=== PATIENT | female | born 1955 | race Caucasian/White ===

== ENCOUNTER 2019-07-21 01:29 | Day surgery (SDC) | payer OTHER, SELFPAY ==
[2019-07-13 11:40] VITALS: BMI 27.3
[2019-07-21] VITALS (10 sets, daily range): BP systolic 125–154; BP diastolic 74–99; PULSE 55–77; RESP 12–20; TEMP 36.3–37.1; O2SAT 92–100
[2019-07-21] MEDS: LACTATED RINGERS 1,000 ML 30 ML IV CONT (10:25)
--- NOTE | 2019-07-21 10:58 | WPDANESEPPF ---
Anes - Initial Pre Proc Eval Procedure: Operation Date: 07/21/19 12:00 Proposed Procedures p Left Knee Arthroscopy, Partial Lateral Meniscectomy - Bernard Vieyra MD Date/Time: 07/21/19 10:58 Surgeon: Bernard Vieyra MD Pre Op Diagnosis: Left Knee Pain Patient Data Age: 64 Gender: F Height: 1.7 m Weight: 82.8 kg Last Vital Signs Temp 36.3 C L 07/21/19 09:59 Pulse 66 07/21/19 09:59 Resp 20 07/21/19 09:59 BP 144/80 H 07/21/19 09:59 Pulse Ox 98 07/21/19 09:59 Allergies Allergy/AdvReac Type Severity Reaction Status Date / Time morphine Allergy Unknown SYNCOPE Verified 07/21/19 10:09 Home Medications Medication Instructions Recorded Confirmed Type cholecalciferol (vitamin D3) 25 mcg PO DAILY 07/13/19 07/21/19 History [Vitamin D3] cyanocobalamin (vitamin B-12) 5,000 mcg SUBLINGUAL DAILY 07/13/19 07/21/19 History [Vitamin B-12] levothyroxine [Synthroid] 125 mcg PO DAILY 07/13/19 07/21/19 History pantoprazole 20 mg PO DAILY 07/13/19 07/21/19 History ropinirole 1 mg PO QPM 07/13/19 07/21/19 History rosuvastatin 10 mg PO DAILY 07/13/19 07/21/19 History Patient hx anesthesia problems: none Family hx anesthesia problems: none [facility] Past Medical History Medical History (Updated 07/20/19 @ 10:23 by Sd Grant DO) GERD (gastroesophageal reflux disease) Hypercholesteremia Hypothyroidism Surgical History Surgical History (Updated 07/20/19 @ 10:23 by Sd Grant DO) History of hysterectomy Anes - Eval Final PreProcedure Day of Procedure 07/21/19 10:58 Patient weight: overweight Heart: regular rate and rhythm Lungs: clear to auscultation and normal air movement Airway: Mallampati scale class II Neurological: alert and oriented Last oral intake: >/= 8 hours ASA classification: II Emergent: no Anesthetic plan: proceed Anesthesia type and monitoring: general LMA and standard monitoring Informed Consent: The patient's anesthetic plan and its attendant risks and benefits were discussed with the patient/family/POA. Questions were solicited and answers provided to the satisfaction of the patient/family/POA.
--- NOTE | 2019-07-21 12:05 | WPDHPUPDATE1 ---
History and Physical Update Update Date/Time: 07/21/19 12:05 History and Physical has been reviewed, including an updated exam of the patient. There are NO changes in the patient's condition. Risks, benefits, and alternatives have been discussed and questions answered. Patient agrees to proceed with procedure.
[2019-07-21] MEDS: ceFAZolin 2 GM/D5W 50 ML 2 GM/50 ML BAG IVPB (12:10)
--- NOTE | 2019-07-21 12:20 | PM.PROC ---
Procedure Note - Detailed Date of procedure: 07/21/19 Pre-op diagnosis: Left Knee Pain Left knee meniscus tear Post-op diagnosis: same Procedure performed: Left knee partial menesictomy (Medial and lateral), chondroplasty Description of procedure: The patient is properly identified in the preoperative holding area, signed the consent reviewed, all questions were thoroughly answered,. Patient taken to the operating room which is placed in a supine position. General anesthetic was administered. Preoperative antibiotics were given. A tourniquet was placed high on the left thigh. The left lower extremity was elevated, prepped and draped in sterile circumferential manner, exsanguinated, and the tourniquet was inflated. A brief pause was held identifying this the correct patient extremity and procedure to be performed carried out. All the room were in agreement. A standard inferolateral arthroscopic portal was established. Utilizing a spinal needle an inferior medial arthroscopic portal was established. Diagnostic arthroscopy was performed with the following findings: 1. There was some degenerative tearing noted to the anterior horn and midbody of the medial meniscus as well as a more acute or semi acute oblique tear to the posterior horn of the medial meniscus. 2. There is grade 3 chondrosis noted to the most medial portion of the medial femoral condyle with some loose unstable cartilage noted. The medial tibial plateau showed some grade 2 changes without any unstable cartilage.. 3. The lateral meniscus showed a tear noted to the junction of the posterior horn in the midbody that was mostly vertical an acute appearing. There is some grade 3 changes noted to the central portion of the patella with some fissuring appreciated. A 4.2 mm shaver was introduced through the medial portal. Debridement of the medial meniscus was done down to good stable meniscal tissue. Removal approximately 25% of the posterior horn and 20% of the midbody was required in order to get to good stable meniscal tissue. Utilizing the shaver and chondroplasty technique debridement of the unstable cartilage on the femoral condyle was done down to good stable rim of articular cartilage. Leg was placed in a figure 4 position. Utilizing the shaver debridement of the lateral meniscus tear was done the done down to good stable rim of lateral meniscal tissue. Excision as there is 50% of the posterior horn was required. The leg was placed in full extension does a chondroplasty technique and the shaver a chondroplasty was performed to the central portion of the patella down to good stable articular cartilage. No full-thickness fissuring subchondral bone was exposed under the case. The legs place a full range of motion the patella tracked appropriately. The ACL PCL normal anatomic tensioning of position. The mediolateral gutters as well as superior patellar pouch were inspected and no pathology or free loose bodies were appreciated. The arthroscope and shaver were removed. The knee was drained. The arthroscopic portals were closed with 3 Monocryl subcuticular tissues. Dermabond was utilized on the skin. The knee joint proper was injected with 3 cc of 1% lidocaine with epinephrine 40 mg of Kenalog for postoperative intra-articular bleeding and pain control purposes. Sterile waterproof Band-Aids were placed over the incisions. The leg is wrapped the toe tips to the mid thigh a long Chet bandage. The tourniquet was deflated to respective medially. Good brisk capillary refill is appreciated. Anesthesia was reversed. The patient was extubated and taken to postop recovery in stable expected stay. No apparent complications were noted. Hospice sponge and needle counts were verified to be correct. Implants: none Anesthesia: GETA Surgeon: Bernard Vieyra MD Estimated blood loss (mL): 5 Tourniquet time (min): 20 Drains: No Packing: No Pathology: none sent Complications: No immediate complications
[2019-07-21] MEDS: BUPIVACAINE/EPINEPHRINE 0.25% 50 ML VIAL INFILTRATE (12:35)
[2019-07-21] MEDS: TRIAMCINOLONE ACET INJ 40 MG/ML VIAL IM (12:36)
== END 2019-07-21 15:21 | disposition home or self-care (01) ==
PROVIDERS: Visit Provider Orthopaedic Surgery
PROC: (CPT 29870; principal; 2019-07-21 12:00)
DX: S83.242A Other tear of medial meniscus, current injury, left knee, initial encounter (principal); S83.282A Other tear of lateral meniscus, current injury, left knee, initial encounter; X50.0XXA Overexertion from strenuous movement or load, initial encounter; M94.262 Chondromalacia, left knee; E78.00 Pure hypercholesterolemia, unspecified; E03.9 Hypothyroidism, unspecified; K21.9 Gastro-esophageal reflux disease without esophagitis
CPT/HCPCS: 29880; A9270; J0690; J1100; J1885; J2250; J2405; J2704; J3010; J3301; J7120

== ENCOUNTER 2024-10-06 09:47 | Outpatient (CLI) | payer MEDICARE, OTHER, SELFPAY ==
--- OUTSIDE RECORDS SUMMARY | 2024-10-06 10:00 | XMS_ITS | Referral Summary ---
Author Organization [facility] Address [address] [place] [address] Phone Care Team Providers Care Making Machine Catcher Name Role Phone Rc Liu Primary Care Provider [phone] Tima Lares MD Unavailable [phone] Allergies Active Allergy Reactions Criticality Noted Date Comments Opioids - Morphine Analogues Syncope Reaction: Syncope/Low BP, Penicillins Shortness of breath,Syncope High 03/21/2020 Medications albuterol HFA (PROVENTIL HFA,VENTOLIN HFA,PROAIR HFA) 90 mcg/actuation inhaler 07/08/2023 Active amitriptyline (ELAVIL) 100 mg tablet 01/08/2024 Active amLODIPine (NORVASC) 5 mg tablet TAKE 1 TABLET BY MOUTH EVERY DAY NEEDED FOR SYSTOLIC BLOOD PRESSURE GREATER THAN 160 01/10/2024 Active amlodipine-ator vastatin (CADUET) 5-10 mg per tablet Active aspirin 81 mg enteric coated tablet Take 1 tablet (81 mg total) by mouth daily 08/31/2023 Active traMADoL (ULTRAM) 50 mg tablet Take by mouth every 6 (six) hours as needed Active rosuvastatin (CRESTOR) 10 mg tablet 07/01/2023 Active rOPINIRole (REQUIP) 5 mg tablet 07/01/2023 Active nitrofurantoin (MACRODANTIN) 50 mg capsule 10/23/2023 Activ e levothyroxine (SYNTHROID) 125 mcg tablet 08/05/2023 Active gabapentin (NEURONTIN) 600 mg tablet 09/23/2023 Active cholecalciferol (VITAMIN D-3) 1,000 unit Active Active Problems Problem Noted Date Diagnosed Date Hypertension 06/05/2011 Thyroid activity decreased 10/03/2010 Migraine headache 02/28/2010 Benign paroxysmal positional vertigo 02/28/2010 Restless legs 02/28/2010 Insomnia 02/28/2010 Social History Tobacco Use Types Packs/Day Years Used Date Smoking Tobacco: Never Personal Safety Answer Date Recorded Getting School Help Needed Not on file 07/09 Comments Unknown Sex and Gender Information Value Date Recorded Sex Assigned at Not on file 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 Gender Identity Not on file Sexual Orientation Not on file Last Filed Vital Signs Vital Sign Reading Time Taken Comments Blood Pressure 132/85 02/03/2024 10:36 AM CDT Pulse 82 02/03/2024 10:36 AM CDT Temperature - - Respiratory Rate - - Oxygen Saturation - - Inhaled Oxygen Concentration - - Weight 9.308 kg (20 lb 8.3 oz) 02/03/2024 10:36 AM CDT Height 170.3 cm (5' 7.05 ) 02/03/2024 10:36 AM C DT Body Mass Index 3.21 02/03/2024 10:36 AM CDT Plan of Treatment Not on file Insurance MEDICARE FOR LIFE MEDICARE FOR LIFE Care Teams Making Machine Catcher Relationship Specialty [place] [address] [place] [address] PCP - General Recreational Therapy Technician 09/27/23 Tima Lares MD [address] [place] [id number] Referring Physician Neurology 12/17/23
--- OUTSIDE RECORDS SUMMARY | 2024-10-06 10:00 | XMS_ITS | Clinical Summary ---
Author Organization [facility] Address [address] [place] [address] Phone Care Team Providers Care Product Management Intern Name Role Phone Rc Liu Primary Care Provider [phone] Tima Lares MD Unavailable [phone] Allergies Active Allergy Reactions Criticality Noted Date [...] vertigo 02/28/2010 Restless legs 02/28/2010 Insomnia 02/28/2010 Surgical History Surgery Date Site/Laterality Comments ORBITAL IMPLANT Left CATARACT EXTRACTION Right Social History Tobacco Use Types Packs/Day Years Used Date Smoking Tobacco: Never Personal Safety Answer Date Recorded Getting School Help Needed Not on file 07/09 Comments Unknown Sex and Gender Information Value Date Recorded Sex Assigned at Not on file 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 Gender Identity Not on file Sexual Orientation Not on file Obstetrics History Last Filed Vital Signs Vital Sign Reading [...] 02/03/2024 10:36 AM CDT Plan of Treatment Health Maintenance Due Date Last Done Comments Colon Cancer Screening-Colonoscopy 1955 Depression Screening 1955 Fall Risk Assessment 1955 Hepatitis C Screening 1955 Hepatitis B Screening 1973 Zoster Vaccine (2 of 3) 09/16/2015 07/22/2015 DTaP/Tdap/Td Vaccine (2 - Td or Tdap) 06/04/2018 06/04/2008 Well Visit 65+ 2020 Pneumococcal vaccine 65+ (2 of 2 - PCV) 04/11/2022 04/11/2021 Osteoporosis Screening-Bone Density Scan 09/26/2022 09/26/2020 Breast Cancer Screening-Mammogram 05/24/2023 023, 05/24/2022 Covid-19 Vaccine (2023-2 5 season) 2024 09/15/2020, 08/25/2020 Influenza Vaccine (Season Ended) 2025 03/23/2021, 02/26/2020, 03/06/2018, Additional history exists Insurance [employer] MEDICARE FOR LIFE Care Teams Product Management Intern Relationship Specialty [place] [address] [place] [address] PCP - General Supervisor Hanging And Trimming 09/27/23 Tima Lares MD [address] [place] [address] Referring Physician Neurology 12/17/23
--- NOTE | 2024-10-06 11:37 | ECG_ITS ---
Test Date: 2024-10-06 11:56:44 Measurements Intervals [place] Rate: 73 P: 14 RI: 168 QRS: -17 QRSD: 85 T: -6 QT: 371 QTc: 410 Interpretive Statements SINUS RHYTHM MODERATE VOLTAGE CRITERIA FOR LVH, CONSIDER NORMAL VARIANT [MEETS CRITERIA IN ONE OF: R(aVL), S(V1), R(V5), R(V5/V6)+S(V1)] POSSIBLE ANTERIOR MYOCARDIAL INFARCTION [30 ms Q WAVE IN V3/V4, OR R < 0.2 mV IN V4], PROBABLY OLD No previous ECG available for comparison Electronically Signed On 10-06-2024 14:26:27 CDT by Katheryn Stevens M.D.
[2024-10-06 13:13] LABS: Basophils Percent Auto 0.4 % (0.2-1.2); Eosinophils Absolute Auto 0.1 K/mm3 (0-0.3); Eosinophils Percent Auto 1.1 % (0-4.4); Hematocrit 44.6 % (37.0-47.0); Hemoglobin 14.1 g/dL (12.0-15.0); Immature Granulocyte Absolute 0.03 K/mm3 (0.00-0.031); Immature Granulocyte Percent A 0.3 % (0-0.5); Lymphocytes Absolute Auto 2.43 K/mm3 (0.9-3.2); Lymphocytes Percent Auto 23.7 % (18.3-44.2); Mean Corpuscular HGB Conc 31.6 g/dl (32-36); Mean Corpuscular Volume 88.5 fl (80-100); Mean Platelet Volume 9.7 fl (7.4-10.4); Monocytes Absolute Auto 0.8 K/mm3 (0.1-0.6); Monocytes Percent Auto 7.5 % (2.6-8.5); Neutrophils Absolute Auto 6.9 K/mm3 (1.3-6.7); Platelet Count Result 351 k/mm3 (150-375); Red Blood Count 5.04 M/mm3 (4.2-5.4); Red Cell Distribution Width 13.5 % (11.5-14.5); White Blood Count 10.2 K/mm3 (4.5-10.0)
[2024-10-06 13:22] LABS: Albumin Level 4.7 g/dL (3.5-5.1); Anion Gap 7 mmol/L (4-12); Blood Urea Nitrogen 14 mg/dL (7-17); Calcium 9.6 mg/dL (8.4-10.2); Carbon Dioxide 30 mmol/L (22-30); Chloride 100 mmol/L (98-107); Estimated Glomerular Filt Rate > 60; Glucose 87 mg/dL (65-110); Sodium 137 mmol/L (137-145)
[2024-10-06 13:59] LABS: Urine Cotinine NEGATIVE
[2024-10-06 14:01] LABS: Hemoglobin A1C 5.7 % (<5.7)
== END 2024-10-06 09:48 | disposition home or self-care (01) ==
PROVIDERS: PCP Registered Nurse; Visit Provider Orthopaedic Surgery
DX: M17.12 Unilateral primary osteoarthritis, left knee (principal); Z01.818 Encounter for other preprocedural examination
CPT/HCPCS: 80048; 80307; 82040; 83036; 85025; 87081; 93005

== ENCOUNTER 2024-10-29 01:20 | Day surgery (SDC) | payer MEDICARE, OTHER, SELFPAY ==
--- NOTE | 2024-10-06 10:10 | PC.NURSE ---
Report to the Outpatient Waiting Room, entrance under the green pavilion located off [facility], at time __6:00AM____ on date ___10/29/24____. Planned Procedure Time: ___7:30AM____.? Time changes happen often and if your time is changed the preop area will call you the afternoon before. - You and your visitor will be asked to self-screen and do not enter if you have any COVID symptoms. Please call surgeon if you need to reschedule. - A mask is optional within the hospital at this time. Patients may have clear liquids (water, carbonated beverages, clear teas, apple juice) until 3 hours prior to surgery (4:30AM) with a maximum of 20 ounces. - No food from midnight until time of surgery and no smoking, or chewing tobacco (or any form of nicotine). No chewing gum, candy or mints. Take only the following medications with a SIP of water on the morning of surgery: AMLODIPINE, LEVOTHYROXINE, FLUDROCORTISONE___ DO NOT STOP ANY OF YOUR OTHER PRESCRIPTION MEDICATIONS PRIOR TO SURGERY EXCEPT THE FOLLOWING Hold all vitamins and supplements for 3 days per anesthesiologist.LAST DOSE 10/25/24 HOLD ALL NSAIDS & ASPIRIN 7 DAYS PRE-OP PER DR BENTLEY/ LAST DOSE 10/21/24. Please no make-up, nail bengali, hairspray, perfume, deodorant, or body powder the day of surgery.? No jewelry (including any body piercings) or valuables the day of surgery, leave them at home.? Please take a shower or bath the night before, or the morning of, surgery with an antibacterial soap.? Wear comfortable, loose fitting clothing.? - Jewelry must be removed prior to entering the operating room.? Rings and piercings that are not removed may be cut off. - The hospital will not accept responsibility for valuables.? - Please leave all valuables, including medications, at home the day of surgery. If you are going home after surgery, a licensed hazmat tanker driver must drive you home.? - NO public transportation without another adult if you receive anesthesia. - We recommend that an adult stay with you for 24 hours following discharge. - We also recommend that you do not drive, make important decision, drink alcoholic beverages, or take any drugs that were not prescribed by your health care provider for at least 24 hours after your discharge time. Follow any additional instructions given to you from your surgeon. Telephone instructions given to ____PATIENT and asked if any additional questions and then verbalized understanding. Patient advised to call surgeon office or pre surgery nurse liaison [phone] if any additional questions.
[2024-10-06 10:32] VITALS: BP 174/101; PULSE 76; RESP 16; TEMP 36.5; O2SAT 96; BMI 31.8
[2024-10-06 11:00] VITALS: BP 170/101
--- NOTE | 2024-10-28 09:51 | P.HP_ITS ---
H&P: HPI History of Present Illness Date/Time: 10/28/24 09:51 Chief Complaint: Left knee DJD Narrative: 69-year-old female who presents today for left total knee arthroplasty. She has been having symptoms in her knee for over 5 years. She underwent arthroscopy for partial medial and lateral meniscectomy in 2019. Over the course the last 5 years she has been getting more more symptoms of pain in the knee. She does not tolerate anti-inflammatories due to GI intolerance. She has had cortisone injections as well as Supartz injections in her knee in the past. She is getting minimal improvement from the cortisone injections. Last shot was well over 5 months ago. Patient has severe lateral compartment osteoarthritis. She continues to have symptoms on a daily basis and feels at this point she is ready proceed with total knee arthroplasty rather than continue nonsurgical treatment. Review of Systems Review of Systems: All systems reviewed & are unremarkable except as noted in HPI and below PMFSH Past Medical History Medical History Hypothyroidism GERD (gastroesophageal reflux disease) Hypercholesteremia Surgical History Surgical History History of hysterectomy Family History Family History (Updated 07/20/24 @ 10:02 by Leigh Atkinson CMA) Father Cerebrovascular accident Social History Social History (Updated 07/20/24 @ 10:02 by Leigh Atkinson CMA) Smoking status: Never smoker Alcohol intake: never Substance use: never Do You Feel Safe in your Home?: Yes Lack of Transportation: No Lack of Food: Never True Current Housing: I Have Housing Concerned About Future Housing: No Difficulty Paying Gas/Electric Bills: No Difficulty Paying for Meds: No Currently Unemployed: No Education: High School Diploma/GED Difficulty w/ Childcare or Family Care: No Living arrangements: with family Additional [facility] Spiritual care concerns: No Meds Home Medications and Allergies Home Medications ?Medication ?Instructions ?Recorded ?Confirmed ?Type cholecalciferol (vitamin D3) 25 25 mcg PO DAILY 07/13/19 10/06/24 History mcg (1,000 unit) capsule (Vitamin D3) levothyroxine 125 mcg tablet 125 mcg PO DAILY 07/13/19 10/06/24 History (Synthroid) rosuvastatin 10 mg tablet 10 mg PO DAILY 07/13/19 10/06/24 History amlodipine 5 mg tablet (Norvasc) 5 mg PO DAILY 07/20/24 10/06/24 History fludrocortisone 0.1 mg tablet 0.05 mg PO DAILY 07/20/24 10/06/24 History polyethylene glycol 3350 17 17 g PO DAILY PRN constipation 07/20/24 10/06/24 History gram/dose oral powder (Miralax) ropinirole 1 mg tablet 5 mg PO QPM 07/20/24 10/06/24 History aspirin 81 mg capsule 243 mg PO DAILY PRN pain 10/06/24 10/06/24 History cyanocobalamin (vitamin B-12) 1,000 mcg PO DAILY 10/06/24 10/06/24 History 1,000 mcg capsule galcanezumab-gnlm 120 mg/mL 120 mg subcut MONTHLY 10/06/24 10/06/24 History subcutaneous pen injector (Emgality Pen) amitriptyline 50 mg tablet 50 mg PO HS 10/12/24 10/12/24 History lisinopril 5 mg tablet 5 mg PO DAILY 10/12/24 10/12/24 History Allergies Allergy/AdvReac Type Severity Reaction Status Date / Time Penicillins AdvReac Intermediate Fainting Verified 10/06/24 10:16 morphine AdvReac Unknown SYNCOPE Verified 10/06/24 10:16 Exam Narrative: 69-year-old female alert pleasant. She is 5 ft 6 198 lb BMI is 31.8. She has a valgus alignment to the left knee which is moderate. Range of motion is from 3- 140 degrees. She has pain at full flexion. Normal stability in the knee to varus valgus stress. Hip range of motion is full without discomfort. Mild tenderness over the medial and lateral joint line in the knee. Negative Stinchfield maneuver. She has normal quad strength. She has 1+ pretibial edema bilaterally. 2+ dorsalis pedis pulse palpable. Normal sensation both lower extremities. Resp: Auscultation: clear to auscultation bilaterally Cardio: Rate: regular rate Rhythm: regular rhythm Assessment and Plan Assessment and plan (1) Primary osteoarthritis of left knee: Code(s): M17.12 - Unilateral primary osteoarthritis, left knee Status: Acute Assessment and Plan: 69-year-old female who has severe lateral compartment osteoarthritis left knee with continued symptoms on a daily basis. Nonsurgical treatment has not given her satisfactory improvement of her symptoms and she feels she is ready proceed with total knee arthroplasty at this point. Surgical procedures well as risks and complications were discussed in detail questions were answered and we will proceed. Patient will see her primary care doctor for pre-surgical clearance. Patient's nasal swab was negative. Hemoglobin 13.5 platelets were 351. Chem panel is all within normal limits creatinine 0.67.
[2024-10-29] VITALS (15 sets, daily range): BP systolic 116–145; BP diastolic 61–81; PULSE 73–95; RESP 12–20; TEMP 36–36.6; O2SAT 93–100
--- NOTE | ~2024-10-29 | XR_ITS ---
[id number] Ordering provider: Jemal Wilson MD History: . POST-OP LEFT TKA . Comparison: None. FINDINGS: BONES: No acute fracture or dislocation. JOINT SPACES: Total knee arthroplasty. SOFT TISSUES: Postoperative change. IMPRESSION: No acute osseous abnormality left knee. Total knee arthroplasty. Reviewed, dictated and finalized at location A.
--- OUTSIDE RECORDS SUMMARY | 2024-10-29 01:27 | XMS_ITS | Referral Summary ---
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
--- OUTSIDE RECORDS SUMMARY | 2024-10-29 01:27 | XMS_ITS | Clinical Summary ---
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
--- OUTSIDE RECORDS SUMMARY | 2024-10-29 01:28 | XMS_ITS | Continuity of Care Document ---
Author Name [facility] Organization [facility] Care Team Providers Care Senior Accountant Cpa Name Role Phone [facility] Unavailable Unavailable Problems Combined list of problems from Department of Defense and Veterans Affairs facilities. It does not include entries that were removed or entered in error. Problem Status Onset Date Problem Type Date of Resolution Comments Source HYPERCHOLESTEROLEMIA Active Condition D oD HYPERKALEMIA Inactive Condition DoD HYPERCALCEMIA Inactive Condition DoD VITAMIN D DEFICIENCY Active Condition D oD ROUTINE GYNECOLOGICAL EXAM Inactive Condition DoD DYSPAREUNIA Active Condition DoD Overweight Active Condition DoD bright red blood per rectum Inactive Condition DoD spinning dizziness (vertigo) Inactive Condition DoD ANKLE SPRAIN RIGHT Inactive Condition Do D SPASMS Active Condition DoD Administrative Evaluation Services Inactive Condition DoD INTERTRIGO Active Condition DoD EPHELIDES Active Condition DoD skin: a rash [as Sx] Active Condition D oD NORMAL ROUTINE HISTORY AND PHYSICAL Inactive Condition DoD OVERWEIGHT Active Condition DoD Outpatient Physician Consultation Active Condition DoD OTITIS MEDIA Active Condition DoD RESTLESS LEGS SYNDROME Active Condition DoD lightheadedness Inactive Condition DoD SINUSITIS ACUTE Inactive Condition DoD visit for: refer patient without exam or treatment Inactive Condition DoD STYE (HORDEOLUM EXTERNUM) - LEFT EYE Inactive Condition DoD ORTHOSTATIC HYPOTENSION IDIOPATHIC Inactive Condition Do D dizziness Inactive Condition DoD visit for: routine eye exam Inactive Condition DoD SUPERFICIAL INJURY - ABRASION OF CORNEA Inactive Condition DoD anxiety Active Condition DoD DEPRESSION Active Condition DoD PRIMARY ADRENAL INSUFFICIENCY ('DARRION DISEASE') Active Condition DoD URINARY TRACT INFECTION Active Condition DoD Urine Tests Nonspecific Abnormal Findings Active Condition DoD HERPES SIMPLEX TYPE I Inactive Condition DoD Head External Swelling Temporal Left Side (___ cm) Active Condition DoD limb pain Inactive Condition DoD CORTICAL ATROPHY Active Condition DoD insomnia Active Condition DoD HEADACHE SYNDROMES Active Condition DoD snoring Active Condition DoD SINUS BRADYCARDIA Active Condition DoD headache Inactive Condition DoD nausea Inactive Condition DoD DERMATOPHYTOSIS TINEA CRURIS Active Condition DoD fainting (syncope) Active Condition DoD Hypotension Active Condition DoD HYPERTHYROIDISM EXOGENOUS IATROGENIC Active Condition DoD NORMAL ROUTINE HISTORY AND PHYSICAL ADULT (18-65) Inactive Condition DoD visit for: screening exam cardiovascular disorders Inactive Condition DoD joint pain fingers Inactive Condition Do D ATYPICAL CHEST PAIN Inactive Condition D oD CONTACT DERMATITIS Inactive Condition Do D MAJOR DEPRESSION, SINGLE EPISODE IN PARTIAL REMISSION Inactive Condition DoD HYPERTENSION (SYSTEMIC) Active Condition DoD ESOPHAGEAL REFLUX Active Condition DoD DEPRESSION WITH ANXIETY Active Condition DoD PANIC DISORDER WITHOUT AGORAPHOBIA Active Condition DoD Vaccines Prophylactic Need Against DTP Inactive Condition DoD Vaccines Prophylactic Need Against Influenza Inactive Condition Do D Pelvic Exam (Internal) Inactive Condition DoD ADJUSTMENT DISORDER Active Condition Do D Laboratory Studies Inactive Condition Do D visit for: administrative purpose Inactive Condition Do D visit for: follow-up exam Inactive Condition will obtain results of tests from [facility] and notify her of the results - informed pt that I doubt that is was abn since no further action from the meat smoker was taken, but cannot be positive without looking at results. Pt instructed to continue nexium for at least 3 months - may try self off after 3 months, but if sx return after stopping will likely have to take indefinitely. DoD visit for: issue repeat prescription for medication Inactive Condition DoD chest pain or discomfort Active Condition DoD BENIGN PAROXYSMAL POSITIONAL VERTIGO Active Condition DoD CHEST PAIN Active Condition Aspirin o nce a day. ECG shows normal sinus rhythm without ST changes. Must consider GERD, pleurisy, and costochondritis in the differential. Pt had no improvement with anxiolytics. DoD Aftercare Inactive Condition DoD PARONYCHIA Inactive Condition Pt to mane e medication as Rx - to continue to soak finger and place CHANDRIKA on area - to follow-up if not getting better in 3-4 days. DoD visit for: laboratory Inactive Condition DoD INFLUENZA Inactive Condition IV hydrati on 1000mL NS x 2. Acetaminophen 975mg PO x 1. Still febrile after acetaminophen, no imprvmt of DILL. Toradol 30mg IV x 1. Pt reports after Toradol that DILL, myalgias improved significantly. Pt also reports feeling better after hydration. Pt d/c'd to home in care of , given written rx for Tamiflu 75mg bid x 5 days #10 RF0 as sx/exam/labs clinically c/w influenza despite negative rapid test (cx pending). Tylenol/motrin prn for fever, myalgias. f/u if no imprvmt for reeval. Pt, pt's spouse expressed understanding and acceptance of POC. DoD ASTIGMATISM - REGULAR Active Condition DoD REFRACTIVE ERROR - HYPERMETROPIA Active Condition DoD PRESBYOPIA Active Condition DoD CATARACT SENILE NUCLEAR Active Condition DoD MIGRAINE HEADACHE (HEMIPLEGIC) WITH INTRACTABLE MIGRAINE Active Condition DoD visit for: screening exam Inactive Condition Screening Colononscopy ordered DoD abdominal pain Inactive Condition Advis ed pt to continue to drink plenty of water - to continue with stool softeners and to follow-up with GI on October 20 for scheduled colonoscopy - to followup after colonoscopy - earlier if has another syncopal episode. DoD joint pain, localized in the knee Inactive Condition L knee, probabl e mild OA with patellofemoral and infrapatellar tendonitis (mild) as well. Meloxicam ordered as below, also recommended trial of glucosamine/chond roitin, f/u 2-3 wks if no imprvmt, sooner prn. DoD visit for: screening malignant neoplasm colon Inactive Condition DoD Hysterectomy Active Condition DoD Mammogram Screening Inactive Condition Normal clinical exam. Pt s/p MAJOR/BSO, recommend pelvic exam q2-3 yrs, needs Pap q10 yrs. recommend annual clinical breast exam and screening mammography. Pt expressed understanding. Continue SBE. DoD HYPOTHYROIDISM Active Condition DoD visit for: issue repeat prescription Inactive Condition DoD HYPERLIPIDEMIA Active Condition DoD DEHYDRATION (Na, H2O) Inactive Condition DoD GASTROENTERITIS Active Condition DoD ORTHOSTATIC HYPOTENSION Active Condition DoD visit for: screening exam osteoporosis Inactive Condition Pt iatroge nically menopausal x 17 yrs, no HRT for several years. Recommend pt begin calcium supplementation at 1000mg daily with Vit D. f/u 1 month to review results of bone density scan (ordered), above labwork. DoD visit for: screening exam lipoid disorders Inactive Condition DoD visit for: screening exam malignant neoplasm breast Inactive Condition Normal clini luis fernando exam. Pt doing regular SBEs. Discussed further screening options - pt elects to return next year for repeat clinical exam and initiate yearly mammograms at that time. DoD LOWER BACK SPRAIN Inactive Condition St retching/streng thening. muscle relaxer prn, continue heat. f/u prn. DoD CELLULITIS GENITAL Inactive Condition L labia minora - no abscess. [place]'s gland inflamm also possible. Will rx with Keflex, recommend also cold soaks. f/u prn if no imprvmt or if sx worsen. DoD CONTUSION WITH INTACT SKIN SURFACE - KNEE Inactive Condition No evide nce of structurally significant injury to knee. Will treat with NSAIDs, resume normal walking activity (for exercise purposes, no probs with routine ambulation) as tolerated. f/u 3-4 weeks if knee still bothersome, sooner if sx worsen significan DoD SUPERFICIAL INJURY - ABRASION OF KNEE Inactive Condition ?past super ficial cellulitis, appears to be resolving now. Pt's main c/o at this point is itch. Will rx with topical triamcinolone cream, rx at same time with abx empirically as steroids a mild immunosuppressor. f/u prn. DoD Medications Combined list of outpatient medications from Department of Defense and Veterans Affairs facilities.Medications provided include 1) outpatient medications from the last 15 months, and 2) patient-reported medications. Medication Details Route Status Patient Instructions Prescription Expires Prescription Number Last Dispense Date Ordering Provider Order Date Order Qty Source AMITRIPTYLI NE HCL (amitriptyl ine HCl), 100 MG, TABLET, ORAL, [facility], 100 ea. BOTTLE Active [id number] 4 2023 90 Pharmac y Data Transac tion Service Facilit y AMLODIPINE BESYLATE (amlodipine besylate), 5 MG, TABLET, ORAL, [facility], 1000 ea. BOTTLE Cancele d [id number] : 2023 0 Pharmac y Data Transac tion Service Facilit y AMLODIPINE BESYLATE (amlodipine besylate), 5 MG, TABLET, ORAL, [facility], 1000 ea. BOTTLE Active [id number] 4 2023 30 Pharmac y Data Transac tion Service Facilit y AMLODIPINE BESYLATE (amlodipine besylate), 5 MG, TABLET, ORAL, [employer], 1000 ea. BOTTLE Active [id number] 2023 30 Pharmac y Data Transac tion Service Facilit y AMOXICILLIN (AMOXICILLI N), 875MG, TABLET, ORAL, AUROBINDO PHARM, 100 ea. BOTTLE Active [id number] 2023 10 Pharmac y Data Transac tion Service Facilit y BREZTRI AEROSPHERE (budesonide /glycopyrro late/formot mayra fumarate), 160-9-4.8, HFA AER AD, INHALATION, ASTRAZENECA , 10.7 g AER W/ADAP Active [id number] 4 2023 10.7 Pharmac y Data Transac tion Service Facilit y BREZTRI AEROSPHERE (budesonide /glycopyrro late/formot mayra fumarate), 160-9-4.8, HFA AER AD, INHALATION, ASTRAZENECA , 10.7 g AER W/ADAP Active [id number] 2023 10.7 Pharmac y Data Transac tion Service Facilit y GABAPENTIN (gabapentin ), 100 MG, CAPSULE, ORAL, CAMBER PHARMACE, 500 ea. BOTTLE Cancele d [id number] : 2023 0 Pharmac y Data Transac tion Service Facilit y GABAPENTIN (GABAPENTIN ), 300 MG, CAPSULE, ORAL, ACTAVIS PHARMA,, 500 ea. BOTTLE Active [id number] 2023 270 Pharmac y Data Transac tion Service Facilit y GABAPENTIN (GABAPENTIN ), 400 MG, CAPSULE, ORAL, ACTAVIS PHARMA,, 500 ea. BOTTLE Active [id number] 2023 90 Pharmac y Data Transac tion Service Facilit y GABAPENTIN (GABAPENTIN ), 600MG, TABLET, ORAL, [email or web address] PHARMA, 500 ea. BOTTLE Active [id number] 2023 90 Pharmac y Data Transac tion Service Facilit y HYDROCODONE -ACETAMINOP HEN (HYDROCODON E/ACETAMINO PHEN), 5MG-325MG, TABLET, ORAL, MALLINCKROD T PH, 500 ea. BOTTLE Active [id number] 2023 28 Pharmac y Data Transac tion Service Facilit y HYDROCODONE -ACETAMINOP HEN (HYDROCODON E/ACETAMINO PHEN), 5MG-325MG, TABLET, ORAL, MALLINCKROD T PH, 500 ea. BOTTLE Active [id number] 2023 21 Pharmac y Data Transac tion Service Facilit y LEVOTHYROXI NE SODIUM (levothyrox ine sodium), 125 MCG, TABLET, ORAL, AMNEAL PHARMACE, 1000 ea. BOTTLE Active [id number] 2023 90 Pharmac y Data Transac tion Service Facilit y MIDODRINE HCL (MIDODRINE HCL), 2.5MG, TABLET, ORAL, APOTEX FERNANDO, 100 ea. BOTTLE Cancele d [id number] : 2023 0 Pharmac y Data Transac tion Service Facilit y NITROFURANT OIN (nitrofuran toin macrocrysta l), 50 MG, CAPSULE, ORAL, AMNEAL PHARMACE, 100 ea. BOTTLE Active [id number] 2023 10 Pharmac y Data Transac tion Service Facilit y PREDNISONE (prednisone ), 20 MG, TABLET, ORAL, NOVITIUM/AN I PH, 500 ea. BOTTLE Active [id number] 2023 10 Pharmac y Data Transac tion Service Facilit y PROCHLORPER AZINE MALEATE (prochlorpe razine maleate), 10 MG, TABLET, ORAL, [email or web address] PHARMA, 100 ea. BOTTLE Cancele d [id number] : 2023 0 Pharmac y Data Transac tion Service Facilit y TRAMADOL HCL (tramadol HCl), 50 MG, TABLET, ORAL, AMNEAL PHARMACE, 500 ea. BOTTLE Active [id number] 2023 120 Pharmac y Data Transac tion Service Facilit y Allergies, Adverse Reactions, Alerts Combined list of allergies from Department of Defense and Veterans Affairs facilities. It does not include entries that were removed or entered in error. Substance Category Reaction Severity Reaction type Status Date Reported Comments Source MORPHINE {Cla } Drug allergy (disorder) Hypotension active 6 [facility] Immunizations Combined list of available immunizations from the Department of Defense and Veterans Affairs facilities. Immunization Series Date Given Administered By Site Reaction Lot Number CVX Code Drug Home Appliance Tech Status Comments Source COVID-19 (PFIZER), MRNA, LNP-S, PF, 30 MCG/0.3 ML DOSE 2 2020 208 [facility] ed PFR; [id number]; 1 [facility] SARS-COV-2 (COVID-19) vaccine, mRNA, spike protein, LNP, preservative free, 30 mcg/0.3mL dose 2 2020 Unknown, Provider [id number] Pfizer, Inc (PFR) complet ed SARS-COV- 2 (COVID-19 ) vaccine, mRNA, spike protein, LNP, preservat tiff free, 30 mcg/0.3mL dose DoD COVID-19 (PFIZER), MRNA, LNP-S, PF, 30 MCG/0.3 ML DOSE 1 2020 208 complet ed PFR; [id number]; 1 [facility] SARS-COV-2 (COVID-19) vaccine, mRNA, spike protein, LNP, preservative free, 30 mcg/0.3mL dose 1 2020 Unknown, Provider [id number] Pfizer, Inc (PFR) complet ed SARS-COV- 2 (COVID-19 ) vaccine, mRNA, spike protein, LNP, preservat tiff free, 30 mcg/0.3mL dose DoD influenza, injectable, quadrivalent, preservative free 2019 ALUL, () Not Given influenza , injectabl e, quadrival ent, preservat tiff free DoD Influenza, injectable, Madin Bernadine Canine Kidney, preservative free, quadrivalent 1 2016 Unknown, Provider [id number] Seqirus (SEQ) complet ed Influenza , injectabl e, Madin Bernadine Canine Kidney, preservat tiff free, quadrival ent DoD Influenza, seasonal, injectable, preservative free 1 2015 Unknown, Provider [id number] Seqirus (SEQ) complet ed Influenza , seasonal, injectabl e, preservat tiff free DoD zoster vaccine, live 1 2015 Unknown, Provider [id number] Merck (MSD) complet ed zoster vaccine, live DoD Influenza, seasonal, injectable, preservative free 1 2014 Unknown, Provider [id number] [employer] (CSL) complet ed Influenza , seasonal, injectabl e, preservat tiff free DoD influenza, injectable, quadrivalent, contains preservative 1 2013 Unknown, Provider [id number] (IDB) complet ed influenza , injectabl e, quadrival ent, contains preservat tiff DoD Influenza, seasonal, injectable, preservative free 4 2012 Unknown, Provider [id number] 140 Sanofi Pasteur (PMC) complet ed Influenza , seasonal, injectabl e, preservat tiff free DoD Influenza, seasonal, injectable, preservative free 3 2012 Unknown, Provider [id number] 140 Sanofi Pasteur ([facility]) complet ed Influenza , seasonal, injectabl e, preservat tiff free DoD influenza virus vaccine, split virus (incl. purified surface antigen)-reti red CODE 1 2008 Unknown, Provider [id number] 15 Sanofi Pasteur ([facility]) complet ed influenza virus vaccine, split virus (incl. purified surface antigen)- retired CODE DoD influenza virus vaccine, split virus (incl. purified surface antigen)-reti red CODE 1 2008 Unknown, Provider [id number] 15 Sanofi Pasteur ([facility]) complet ed influenza virus vaccine, split virus (incl. purified surface antigen)- retired CODE DoD tetanus toxoid, reduced diphtheria toxoid, and acellular pertu is vaccine, adsorbed 1 2008 Unknown, Provider [id number] 115 Sanofi Pasteur ([facility]) complet ed tetanus toxoid, reduced diphtheri a toxoid, and acellular pertussis vaccine, adsorbed DoD Encounters Combined list of: 1) Encounters from Department of Veterans Affairs facilities going backup to the last 18 months, not all VA inpatient encounters are included; 2) Encounters from the Department of Defense facilities going backup to 280 months. Location Location Details Encounter Type Encounter Number Reason For Visit Attending Provider ADM Date DC Date Status Disposition Source [address] [place] [address])([facility] Non-GME FHI2) OUTPATIENT [id number] Lt knee pain and swellin g ABDULKADIR SEWELL 02/06 Released w/o Limitations [address] [place] [address])([facility] Non-[facility]2) [address] [place] [address])([facility] Non-GME FHI2) OUTPATIENT [id number] f/u for thyroid ABDULKADIR SEWELL 03/29 Released w/o Limitations [address] [place] [address])([facility] Non-[facility]ME FHI2) [address] [place] [address])([facility] Non-GME FHI2) OUTPATIENT [id number] sore on vagina/ very sore ABDULKADIR SEWELL 04/17 Released w/o Limitations [address] [place] [address])([facility] Non-[facility]ME FHI2) [facility] [employer] ([facility] Non-GME FHI2[facility] OUTPATIENT [id number] back pain otc meds not helping ABDULKADIR SEWELL 06/05 Released w/o Limitations [address] [place] [address] [facility] F[facility]2) [facility] ([facility] Non-GME FHI2) OUTPATIENT [id number] ANNUAL PAP, BREAST EXAM, MAMMO REQUEST ABDULKADIR SEWELL 04/09 Released w/o Limitations [address] [place] [address] Group [employer] ([facility] Practic e Non-GME FHI2) [address] [place] [address] [facility]Sco tt Internal Medicine Tm) OUTPATIENT [id number] consult in ROSANGELA ALVAREZ 06/15 Released w/o Limitations [address] [place] [address] [facility])(S cott Interna l Medicin e Tm) [facility] [facility])([facility] Non-GME FHI2) OUTPATIENT [id number] F/U Thyroid and labs ABDULKADIR SEWELL 07/25 Released w/o Limitations [address] [place] [address] Group [facility])([facility] Practic e Non-GME FHI2) [address] [place] [address] [employer] [facility] Non-GME FHI2) OUTPATIENT [id number] f/u TONY SCHULZ 11/26 Released w/o Limitations [address] [place] [address] [employer] [facility]F am[facility] Practic e Non-GME FHI2) [address] [place] [address] [employer] [facility] Non-GME FHI1) TELE CONSULT [id number] MEDICAT ION REFILL ESME STANTON 05/[address] [place] [address] Group [employer] [facility])(F amily Practic e Non-GME FHI1) [address] [place] [address] [employer] [facility])([facility]lava Practice Non-GME FHI2) OUTPATIENT [id number] annual pap smear. phone:[phone] ABDULKADIR SEWELL 09/12 Released w/o Limitations [address] [place] [address] [employer] [facility])(F amily Practic e Non-GME FHI2) [address] [place] [address] [employer] [facility])([facility] Non-GME FHI2) OUTPATIENT [id number] LEFT KNEE PAIN C#[phone], H#[phone] ABDULKADIR SEWELL 11/19 Released w/o Limitations [address] [place] [address] [employer] [facility])(F amily Practic e Non-GME FHI2) [address] [place], [place] [address]B [facility])([facility] Non-GME FHI2) OUTPATIENT [id number]; med renewal for thyroid WALDO SANTO 05/29 Released w/o Limitations [address] [place], [place] [address]B [facility])([facility] Practic e Non-GME FHI2) [address] [place], [place] [address]B [facility])([facility] Non-GME FHI2) TELE CONSULT [id number] DESTINY ALVARADO 05/[address] [place] [address])([facility] Pract[facility] e Non-GME FHI2) [address] [place] [address])(Opt ometry) OUTPATIENT [id number] routine eye exam SHEEBA SANDY W 06/06 Released w/o Limitations [address] [place], [place] [address]B [facility])(O ptometr y) [address] [place], [place] [address] [facility])([facility] Non-GME FHI2) OUTPATIENT [id number] [phone] cough, congest ion, fever ABDULKADIR SEWELL 06/17 Released w/o Limitations [address] [place], [place] [address]B [facility])(F amily Practic e Non-GME FHI2) [address] [place], [place] [address] [facility])([facility] Non-GME FHI2) TELE CONSULT [id number] jamie Sewell of positiv e flu ESME STANTON 06/[address] [place] [address])([facility] Practic e Non-GME FHI2) [address] [place], [place] [address]B [facility])([facility] Non-GME FHI2) OUTPATIENT [id number] infecte d lt index finger STONE HERNANDEZ 07/28 Released w/o Limitations [address] [place] [address] [employer] [facility])(F amily Practic e Non-GME FHI2) [address] [place] [address] [employer] [facility])([facility] Non-GME FHI2) OUTPATIENT [id number] 97# F/U FOR ABDULKADIR REYES 08/18 Released w/o Limitations [address] [place] [address] [employer] ([facility]F amily Practic e Non-GME FHI2) [address] [place] [address] [employer] Non-GME FHI2) OUTPATIENT [id number] fu for uti, no est...s pou wanted her seen this week... [phone] STONE HERNANDEZ 10/07 Released w/o Limitations [address] [place] [address] [employer] B ([facility]F amily Practic e Non-GME FHI2) [address] [place] [address] [facility]Sco tt [facility] Tm Blue) OUTPATIENT [id number] visit for: screeni ng maligna nt neoplas m ERWIN Burleson 10/20 Released w/o Limitations [address] [place] [address] [employer]S cott [facility] Tm Blue) [address] [place] [address] [facility]ase [facility])(Sco tt [facility] Tm Blue) TELE CONSULT [id number] Call back C-scope [id number] -MAKEDA Ortega 10/[address] [place] [address] [facility] [address] [place] [address] [facility])([facility] Non-GME FHI1) OUTPATIENT [id number] F/U ER [id number] CHEST PAINS,V OMITING ,NAUSEA -STILL NAUSEOU S QUYNH [place]ARK 10/28 Released w/o Limitations [address] [place] [address] [employer] [facility])(F amily Practic e Non-GME FHI1) [address] [place] [address] Jase B [facility])([facility] Non-GME FHI2) OUTPATIENT [id number] fol colonos copy STONE HERNANDEZ 11/16 Released w/o Limitations [address] [place] [address] [facility] [facility] [facility])(F amily Practic e Non-GME FHI2) [address] [place] [address] [facility]ase B [facility])([facility] Non-GME FHI2) OUTPATIENT [id number] f/u blood work [id number] STONE HERNANDEZ 12/23 Released w/o Limitations [address] [place] [address] [facility]ase [facility])(F amily Practic e Non-GME FHI2) [address] [place] [address] [employer] [facility])([facility] Non-GME FHI2) TELE CONSULT [id number] WALDO OTT 12/[address] [place] [address] Jase B [facility])(F amily Practic e Non-GME FHI2) [address] [place] [address] [employer] [facility])([facility] Non-GME FHI2) TELE CONSULT [id number] ESME De Santiago 02/[address] [place] [address] Ajse B [facility]F amily Practic e Non-GME FHI2) [address] [place] [address] [employer] [facility])([facility] miroslava Practice Non-GME FHI2) TELE CONSULT [id number] Lab results -- DESTINY Mcleod 05/[address] [place] [address] Jsae LANDERSB [facility])(F amily Practic e Non-GME FHI2) [address] [place] [address] Jase [facility]B [facility])([employer] [facility] Non-GME FHI2) OUTPATIENT [id number] WWE/nupur ual physica l (pelvic only) AMALIA SEWELL 05/26 Released w/o Limitations [address] [place] [address] Jase [facility])(F amily Practic e Non-GME FHI2) [address] [place] [address] Jase [facility]ERS[place] [facility])([facility] miroslava Practice Non-GME FHI1) OUTPATIENT [id number] Flu shot AMALIA SEWELL 06/04 Released w/o Limitations [address] [place] [address] Jase [facility]ERS[place] [facility])(F amily Practic e Non-GME FHI1) [address] [place] [address] [employer] [facility])(Fam miroslava Med Tm B Non-AD BCC) OUTPATIENT [id number] f/u medicat ion AMALIA SEWELL 08/25 Released w/o Limitations [address] [place] [address] [employer] ([facility]F amily Med Tm B Non-AD BCC) [address] [place] [address] [employer] [facility]Fam miroslava Med Tm B Non-AD BCC) TELE CONSULT [id number] Jailyn/kristyn lockett nt rx DOMINICK LUDWIG 09/[address] [place] [address] Group Jase TAMAYO ([facility]F amily Med Tm B Non-AD BCC) [address] [place] [address] Jase T[place]AY[employer] ([facility]Fam miroslava Med Tm B Non-AD BCC) OUTPATIENT [id number] F/U new BP meds AMALIA SEWELL 10/05 Released w/o Limitations [address] [place] [address] Group Jase TAMAYO ([facility]F amily Med Tm B Non-AD BCC) [address] [place] [address] Jase TAMAYO ([facility]Fam miroslava Med Tm B Non-AD BCC) OUTPATIENT [id number] f/u meds - AMALIA SEWELL 12/14 Released w/o Limitations [address] [place] [address] Group Jase TAMAYO ([facility]F amily Med Tm B Non-AD BCC) [address] [place] [address] Jase TAMAYO ([facility]Fam miroslava Med Tm B Non-AD BCC) OUTPATIENT [id number] F/U FOR BLOOD PRESSUR E [phone] AMALIA SEWELL 04/14 Released w/o Limitations [address] [place] [address] Group Jase T[facility]AY[facility] ([facility]F amily Med Tm B Non-AD BCC) [address] [place] [address] Jase T[place] ([facility])(Car diology (MTF)) OUTPATIENT [id number] ekg FEDECELESTE Hdez Jessie 05/04 Released w/o Limitations [address] [place] [address] Group Jase TAMAYO ([facility])(C ardiolo gy (MTF)) [address] [place] [address] Jase T[facility]AYO ([facility]Fam miroslava Med Tm B Non-AD BCC) OUTPATIENT [id number] f/u blood pressur e [phone] AMALIA SEWELL 08/15 Released w/o Limitations [address] [place] [address] Group Jase LANDERSB ([facility]F amily Med Tm B Non-AD BCC) [address] [place] [address] Jase TAMAYO ([facility]Fam miroslava Med Tm B Non-AD BCC) TELE CONSULT [id number] Lab Review PAIGE JIMENEZ 08/[address] [place] [address] Group Jase T[facility]AY[employer] ([facility]F amily Med Tm B Non-AD BCC) [address] [place] [address] Jase TAMAYO ([facility]Fam miroslava Med Tm B Non-AD BCC) TELE CONSULT [id number] audio notes/ rads AMALIA SEWELL 09/[address] [place] [address] Group Jase TAMAYO ([facility])(F amily Med Tm B Non-AD BCC) [address] [place] [address] Jase TAMAYO ([facility]Fam miroslava Med Tm B Non-AD BCC) OUTPATIENT [id number] follow up thyroid medicat ion [phone] AMALIA SEWELL 10/24 Released w/o Limitations [address] [place] [address] Group Jase TAMAYO ([facility])(F amily Med Tm B Non-AD BCC) [address] [place] [address] Group Jase TAMAYO ([facility]Fam miroslava Med Tm B Non-AD BCC) OUTPATIENT [id number] fu ER in [place] chest pains and low blood pressur e [phone] AMALIA SEWELL 11/16 Released w/o Limitations [address] [place] [address] Group Jase TAMAYO ([facility]F amily Med Tm B Non-AD BCC) [address] [place] [address] Group Jase TAMAYO ([facility])(Fam miroslava Med Tm B Non-AD BCC) OUTPATIENT [id number] F/U on BP [phone] AMALIA SEWELL 11/23 Released w/o Limitations [address] [place] [address] Group Jase TAMAYO ([facility]F amily Med Tm B Non-AD BCC) [address] [place] [address] Group Jase TAMAYO ([facility])(Car diology (MTF)) OUTPATIENT [id number] ekg FEDEF CELESTE I 11/30 Released w/o Limitations [address] [place] [address] Group Jaes TAMAYO ([facility])(C ardiolo gy ([facility])) [address] [place] [address] Group Jase TAMAYO ([facility])(Fam miroslava Med Tm B Non-AD BCC) TELE CONSULT [id number] Rad report ALYSE DEL VALLE 11/30 Referred for Appointment [facility] Jase TAMAYO ([facility])(F amily Med Tm B Non-AD BCC) [address] [place] [address] Group Jase TAMAYO ([facility]Fam miroslava Med Tm B Non-AD BCC) OUTPATIENT [id number] migrain es [phone] AMALIA SEWELL 12/09 Released w/o Limitations [address] [place] [address] Group Jase TAMAYO ([facility])(F amily Med Tm B Non-AD BCC) [facility] Jase TAMAYO ([facility])(Fam miroslava Med Tm B Non-AD BCC) TELE CONSULT [id number] jailyn-hugo keatings for headach es not working needs a critical access hospital [phone] EJR PAIGE JIMENEZ 12/22 Referred for Appointment [address] [place] [address] Jase [facility])(F amily Med Tm B Non-AD BCC) [address] [place] [address] Jase [place] [facility])(Fam miroslava Med Tm B Non-AD BCC) OUTPATIENT [id number] fu tests and medicat ion refills [phone] AMALIA SEWELL 01/23 Released w/o Limitations [address] [place] [address] Group Jase LANDERSB ([facility]F amily Med Tm B Non-AD BCC) [address] [place] [address] Jase [facility] [facility])(Fam miroslava Med Tm B Non-AD BCC) TELE CONSULT [id number] Rad Results - PAIGE Jesus 02/16 Referred for Appointment [address] [place] [address] Jase [facility])(F amily Med Tm B Non-AD BCC) [address] [place] [address] Jase [facility])(Sco tt [facility] Team 3) TELE CONSULT [id number] pt called for advice regardi ng her blood pressur e and medicat ion. CASS RODARTE 02/21 Referred for Appointment [address] [place] [address] Jase [facility])(S cott [facility] Team 3) [address] [place] [address] Jase L[place]ERSB [facility])([facility] miroslava Med Tm B Non-AD BCC) OUTPATIENT [id number] follow up labs/ne uro/abn ormal MRI AMALIA SEWELL 03/09 Released w/o Limitations [address] [place] [address] Group Jase LANDERSB ([facility]F amily Med Tm B Non-AD BCC) [address] [place] [address] Group Jase [facility])(Fam miroslava Med Tm B Non-AD BCC) TELE CONSULT [id number] Lab results PAIGE JIMENEZ 03/10 Referred for Appointment [address] [place] [address] Group Jase [facility])(F amily Med Tm B Non-AD BCC) [address] [place] [address] Jase [facility] [facility])(Fam miroslava Med Tm B Non-AD BCC) OUTPATIENT [id number] two bumps on side of head eval [phone] AMALIA SEWELL 04/03 Released w/o Limitations [address] [place] [address] Jase TAMAYO [facility])(F amily Med Tm B Non-AD BCC) [address] [place] [address] Jase [facility] [facility])(Fam miroslava Med Tm B Non-AD BCC) TELE CONSULT [id number] lab result - PCM PAIGE Jesus 04/10 Other Not Elsewhere Classified [address] [place] [address] Jase [facility] [facility])(F amily Med Tm B Non-AD BCC) [address] [place] [address] Jase [facility] [facility])(Fam miroslava Med Tm B Non-AD BCC) TELE CONSULT [id number] Jailyn- Pt has raphael dalton about blood test. [phone] PAIGE JIMENEZ 04/25 Referred for Appointment [address] [place] [address] Jase TAMAYO [facility])(F amily Med Tm B Non-AD BCC) [address] [place] [address] Jase [facility] [facility])(Fam miroslava Med Tm B Non-AD BCC) TELE CONSULT [id number] Sewell/6 18 [phone]/re DOMINICK Mclean 04/26 Advice Assessment [address] [place] [address] Jase TAMAYO [facility])(F amily Med Tm B Non-AD BCC) [address] [place] [address] Jase [facility] [facility])(Fam miroslava Med Tm B Non-AD BCC) TELE CONSULT [id number] Sewell/6 18 [phone]/ne eds differe nt lab test ordered , MTF ordered wrong tests PAIGE JIMENEZ 05/02 Referred for Appointment [address] [place] [address] Jase TAMAYO [facility])(F amily Med Tm B Non-AD BCC) [address] [place] [address] Jase [facility] [facility])(Fam miroslava Med Tm B Non-AD BCC) TELE CONSULT [id number] Sewell/6 18 [phone] or [phone]/ca rdio referra l extende d cardio appt IMELDA KC 06/[address] [place] [address] Jase TAMAYO [facility])(F amily Med Tm B Non-AD BCC) [address] [place] [address] Jase TAMAYO [facility])(Fam miroslava Med Tm B Non-AD BCC) OUTPATIENT [id number] follow up labs [phone] AMALIA SEWELL 06/20 Released w/o Limitations [address] [place] [address] Jase [facility] [facility])(F amily Med Tm B Non-AD BCC) [address] [place] [address] Jase LANDERSB ([facility]Fam miroslava Med Tm B Non-AD BCC) TELE CONSULT [id number] Lab Results JIMENEZ PAIGE Brewer 06/22 Referred for Appointment [address] [place] [address] Group Jase TAMAYO ([facility]F amily Med Tm B Non-AD BCC) [address] [place] [address] Jase ANSHULB ([facility])(Fam miroslava Med Tm B Non-AD BCC) TELE CONSULT [id number] Darrion s Disease PAIGE JIMENEZ 07/20 Referred for Appointment [address] [place] [address] Group Jase ANSHULSantos ([facility]F amily Med Tm B Non-AD BCC) [address] [place] [address] Jase ANSHULB ([facility]Fam miroslava Med Tm B Non-AD BCC) TELE CONSULT [id number] ER F/U--sp eak with nurse PAIGE Elizabeth 09/[address] [place] [address] Jase ANSHULSantos ([facility]F amily Med Tm B Non-AD BCC) [address] [place] [address] Jase ANSHULB ([facility])(Fam miroslava Med Tm B Non-AD BCC) OUTPATIENT [id number] f/u for ER visit/p assed out [phone] ROSSI ALBARRAN 09/06 Released w/o Limitations [address] [place] [address] Jase ANSHULSantos ([facility]F amily Med Tm B Non-AD BCC) [address] [place] [address] Jase LANDERSB ([facility])(Fam miroslava Med Tm B Non-AD BCC) OUTPATIENT [id number] fu on er visit [phone] AMALIA SEWELL 09/29 Released w/o Limitations [address] [place] [address] Jase ANSHULB ([facility])(F amily Med Tm B Non-AD BCC) [address] [place] [address] Jase ANSHULB ([facility])(Fam miroslava Med Tm B Non-AD BCC) TELE CONSULT [id number] f/u for bubble on eye PAIGE Elizabeth 10/[address] [place] [address] Jase ANSHULSantos ([facility]F amily Med Tm B Non-AD BCC) [address] [place] [address] Jase ANSHULB ([facility])(Opt ometry) OUTPATIENT [id number] pt show at 0900/f/ u from er bug in eye CHUCKIE KENNEDY 10/11 Released w/o Limitations [address] [place] [address] Jase TAMAYO ([facility])(O ptometr y) [address] [place] [address] Jase ANSHULB ([facility])(Fam miroslava Med Tm B Non-AD BCC) TELE CONSULT [id number] Ronit Sewell cad tlt WALDO OTT R 10/[address] [place] [address] Jase ANSHULSantos ([facility])(F amily Med Tm B Non-AD BCC) [address] [place] [address] Jase ANSHULB ([facility]Fam miroslava Med Tm B Non-AD BCC) TELE CONSULT [id number] Needs Fup appt for cholest mayra Dr Sewell - [phone] CAD [facility] WALDO OTT R 11/[address] [place] [address] Jase ANSHULSantos ([facility]F amily Med Tm B Non-AD BCC) [address] [place] [address] Jase ANSHULB ([facility])(Fam miroslava Med Tm B Non-AD BCC) OUTPATIENT [id number] chol f/u-pos s restart AMALIA Saunders 11/16 Released w/o Limitations [address] [place] [address] Jase ANSHULSantos ([facility]F amily Med Tm B Non-AD BCC) [address] [place] [address] Jase ANSHULSantos ([facility]Fam miroslava Med Tm B Non-AD BCC) TELE CONSULT [id number] call back regardi ng new meds making her not feel well [phone] CAD [facility] PAIGE JIMENEZ 12/[address] [place] [address] Group Jase ANSHULSantos ([facility])(F amily Med Tm B Non-AD BCC) [address] [place] [address] Jase ANSHULB ([facility])(Fam miroslava Med Tm B Non-AD BCC) TELE CONSULT [id number] New medicat ion, medicat ion making her tired - [phone] PAIGE JIMENEZ 12/[address] [place] [address] Group Jase ANSHULB ([facility]F amily Med Tm B Non-AD BCC) [address] [place] [address] Jase ANSHULB ([facility])(Fam miroslava Med Tm B Non-AD BCC) TELE CONSULT [id number] Sewell/ 18 [phone]/re fill synthry oid WALDO OTT R 01/[address] [place] [address] Jase ANSHULSantos ([facility]F amily Med Tm B Non-AD BCC) [address] [place] [address] Jase TAMAYO ([facility])(Fam miroslava Med Tm B Non-AD BCC) TELE CONSULT [id number] Lab Results GAGAN OTTLY R 01/[address] [place] [address] Jase TAMAYO ([facility])(F amily Med Tm B Non-AD BCC) [address] [place] [address] Jase LANDERSB ([facility])(Fam miroslava Med Tm B Non-AD BCC) OUTPATIENT [id number] f/u for cholest mayra [phone] AMALIA SEWELL 02/21 Released w/o Limitations [address] [place] [address] Jase LANDERSB ([facility])(F amily Med Tm B Non-AD BCC) [address] [place] [address] Jase LANDERSB ([facility])(Fam miroslava Med Tm B Non-AD BCC) TELE CONSULT [id number] Referra l request /stress test-Ol son/806 -3975/c CASS Kolb 02/[address] [place] [address] Jase LANDERSB ([facility]F amily Med Tm B Non-AD BCC) [address] [place] [address] Jase LANDERSB ([facility])(Fam miroslava Med Tm B Non-AD BCC) TELE CONSULT [id number] Referra l jeffy/ Jailyn/f xs WALDO OTT R 03/[address] [place] [address] Jase LANDERSB ([facility])(F amily Med Tm B Non-AD BCC) [address] [place] [address] Jase LANDERSB ([facility])(Fam miroslava Med Tm B Non-AD BCC) OUTPATIENT [id number] f/u cough [id number] AMALIA SEWELL 04/12 Released w/o Limitations [address] [place] [address] Jase LANDERSB ([facility])(F amily Med Tm B Non-AD BCC) [address] [place] [address] Jase LANDERSB ([facility])(Fam miroslava Med Tm B Non-AD BCC) TELE CONSULT [id number] E.R> f/u - Olsom - [phone] [address] [place] [address] WALDO OTT R 06/[address] [place] [address] Jase ANSHULB ([facility])(F amily Med Tm B Non-AD BCC) [address] [place] [address] Jase ANSHULB ([facility])(Fam miroslava Med Tm B Non-AD BCC) OUTPATIENT [id number] ER f/u GI sxs-AMALIA Eaton 06/29 Released w/o Limitations [address] [place] [address] [facility]F amily Med Tm B Non-AD BCC) [address] [place] [address] Jase [facility])(Fam miroslava Med Tm B Non-AD BCC) OUTPATIENT [id number] right ear pain [id number] AMALIA SEWELL 10/01 Released w/o Limitations [address] [place] [address] Jase [facility])(F amily Med Tm B Non-AD BCC) [address] [place] [address] Jase [facility])(Fam miroslava Med Tm B Non-AD BCC) TELE CONSULT [id number] Notes Entered by: CHRISTOPHER SPARKS 21 Nov 2011 1609 ------- ------- ------- ------- -- WALDO Tsai 11/[address] [place] [address] Jase [facility])(F amily Med Tm B Non-AD BCC) [address] [place] [address] Jase [facility])(Fam miroslava Med Tm B Non-AD BCC) TELE CONSULT [id number] Notes Entered by: Nabila HEWITT 08 Feb 2012 1519 ------- ------- ------- ------- -- Med refill synthro id 1.50 mg daily [phone] WALDO OTT 02/[address] [place] [address] Jase [facility])(F amily Med Tm B Non-AD BCC) [address] [place] [address] Jase [facility])(Fam miroslava Med Tm B Non-AD BCC) OUTPATIENT [id number] f/u TSH IVAN STEPHENS 03/05 Released w/o Limitations [address] [place] [address] Jase [facility]F amily Med Tm B Non-AD BCC) [address] [place] [address] Jase [facility])(Dudley matology) OUTPATIENT [id number] NORMAL ROUTINE HISTORY AND PHYSICA JASE VENEGAS 04/02 Released w/o Limitations [address] [place] [address] Jase [facility] ([facility]D ermatol ogy) [address] [place] [address] Jase [facility])(Fam miroslava Med Tm B Non-AD BCC) TELE CONSULT [id number] Notes Entered by: Tamara OTT 20 Jun 2012 1418 ------- ------- ------- ------- -- WALDO Gilliam 06/[address] [place] [address] Jase [facility])(F amily Med Tm B Non-AD BCC) [address] [place] [address] Jase [facility] ([facility]Fam miroslava Med Tm B Non-AD BCC) OUTPATIENT [id number] ER F/U [phone] IVAN STEPHENS 07/21 Released w/o Limitations [address] [place] [address] Jase [facility] ([facility])(F amily Med Tm B Non-AD BCC) [address] [place] [address] Jase [facility])(Fam miroslava Med Tm B Non-AD BCC) OUTPATIENT [id number] Notes Entered by: MARY JANE ALLISON 25 Jul 2012 0917 ------- ------- ------- ------- -- BP check/d ay1 IVAN STEPHENS 07/25 Released w/o Limitations [address] [place] [address] Jase [facility])(F amily Med Tm B Non-AD BCC) [address] [place] [address])(Fam miroslava Med Tm B Non-AD BCC) TELE CONSULT [id number] Notes Entered by: JASKARAN AZAR CIA 21 Aug 2012 1530 ------- ------- ------- ------- -- Ronit topete for cardiol ogist - appt on Aug -WALDO Flannery 08/[address] [place] [address] Jase [facility] ([facility])(F amily Med Tm B Non-AD BCC) [address] [place] [address] Jase [facility])(Fam miroslava Med Tm B Non-AD BCC) TELE CONSULT [id number] Notes Entered by: GARCÍA MEDEL 13 Oct 2012 1610 ------- ------- ------- ------- -- Network Results - CARDIOL OGY 09/29/12 IVAN STEPHENS 10/[address] [place] [address] [employer] ([facility])(F amily Med Tm B Non-AD BCC) [address] [place] [address] Group [employer] ([facility])(Fam miroslava Med Tm B Non-AD BCC) TELE CONSULT [id number] Notes Entered by: CHRISTOPHER SPARKS 18 Nov 2012 1538 ------- ------- ------- ------- -- Blood in stool x nine days Teja [phone] GABINO SCHILLING 11/[address] [place] [address] Group [employer] ([facility])(F amily Med Tm B Non-AD BCC) [address] [place] [address] [employer] ([facility])(Sco tt [facility] Team 3) OUTPATIENT [id number] Notes Entered by: Daniella STEPHENS 02 Jan 2013 0908 ------- ------- ------- ------- -- f/u IVAN STEPHENS 01/02 Released w/o Limitations [address] [place] [address] Group Jase [facility]ULB [facility]S [facility] Team 3) [address] [place] [address] Jase [facility]ERSB [facility])([facility] Team 3) OUTPATIENT [id number] cold sores IVAN STEPHENS 03/02 Released w/o Limitations [address] [place] [address] Jase LANDERSB ([facility])(S [facility] Team 3) [address] [place] [address] [employer] ([facility])([facility] Team 3) TELE CONSULT [id number] Notes Entered by: Daniella STEPHENS 03 Mar 2013 0648 ------- ------- ------- ------- -- labs IVAN STEPHENS 03/[address] [place] [address] [employer] ([facility])([facility] Team 3) [address] [place] [address] [employer] ([facility] [place]) OUTPATIENT [id number] Follow up on labs IVAN STEPHENS 03/13 Released w/o Limitations [address] [place] [address] [employer] ([facility] [place] Team 3) [address] [place] [address] [employer] ([facility] [place]) OUTPATIENT [id number] annual wwe - [id number] JAKE JOHNSTON 03/27 Released w/o Limitations [address] [place] [address])(Rajesh sparks) [address] [place] [address])([facility] Team 3) TELE CONSULT [id number] Notes Entered by: Daniella STEPHENS 27 Apr 2013 0800 ------- ------- ------- ------- -- ABELINO Knutson 04/[address] [place] [address])([facility] Team 3) [address] [place] [address])([facility] Team 3) TELE CONSULT [id number] Notes Entered by: Daniella STEPHENS 15 Jun 2013 0719 ------- ------- ------- ------- -- IVAN Betlran 06/[address] [place] [address])([facility] Team 3) [address] [place] [address])([facility] Team 3) TELE CONSULT [id number] Notes Entered by: DAREK ESPINOSA 23 Jun 2013 1221 ------- ------- ------- ------- -- [facility] 06[facility]23 Referred for Appointment [address] [place] [address])([facility] Team 3) [address] [place] [address])([facility] rior Op Med Cln Tm A Ad) TELE CONSULT [id number] Notes Entered by: GARCÍA MEDEL 15 Jul 2013 0844 ------- ------- ------- ------- -- Network Results - CARDIOL OGStevenson - 07/06/13 IVAN STEPHENS 07/[address] [place] [address])([facility] Tm A Ad) [address] [place] [address])(Fam miroslava Med Tm B Non-AD BCC) OUTPATIENT [id number] f/u medicat ion [phone] VLADISLAV SHEA 09/11 Released w/o Limitations [address] [place] [address] [facility])(F amily Med Tm B Non-AD BCC) [address] [place] [address] [facility])(War rior Op Med Cln Tm A Ad) OUTPATIENT [id number] left shoulde r pain X 2 months- not getting better- [id number] [phone] SHAI LOVE 01/12 Released w/o Limitations [address] [place] [address] [facility]W arrior Op Med Cln Tm A Ad) [address] [place] [address] [facility])(War rior Op Med Cln Tm A Ad) TELE CONSULT [id number] Notes Entered by: SHAI LOVE 27 Jan [id number] ------- ------- ------- ------- -- MRI results ABELINO KRUEGER 01/[address] [place] [address] [facility])(W arrior Op Med Cln Tm A Ad) [address] [place] [address] [facility])(War rior Op Med Cln Tm A Ad) TELE CONSULT [id number] Notes Entered by: EMELI GLEZ 10 Feb 2014 1141 ------- ------- ------- ------- -- Network Results -CARDIO LOGY 12/28/13 SHAI LOVE 02/[address] [place] [address] [facility])(W arrior Op Med Cln Tm A Ad) [address] [place] [address] [facility]Fam miroslava Med Tm B Non-AD BCC) TELE CONSULT [id number] Notes Entered by: GARCÍA MEDEL 02 Mar 2014 0843 ------- ------- ------- ------- -- Network Results - CARDIOL OGY- 4 SHAI LOVE 03/[address] [place] [address] [facility])(F amily Med Tm B Non-AD BCC) [address] [place] [address] [facility])(Fam miroslava Med Tm B Non-AD BCC) TELE CONSULT [id number] Notes Entered by: GARCÍA MEDEL 10 Mar 2014 1108 ------- ------- ------- ------- -- Network Results - ORTHOPE DICS - 4 SHAI LOVE 03/[address] [place] [address])(F amily Med Tm B Non-AD BCC) [address] [place] [address])(Fam miroslava Med Tm B Non-AD BCC) TELE CONSULT [id number] Notes Entered by: GARCÍA MEDEL 15 Mar 2014 0745 ------- ------- ------- ------- -- Network Results - ORTHOPE DICS - 4 SHAI LOVE 03/[address] [place] [address])(F amily Med Tm B Non-AD BCC) [address] [place] [address])(War rior Op Med Cln Tm A Ad) TELE CONSULT [id number] Notes Entered by: DAREK FUNK 22 Mar 2014 1007 ------- ------- ------- ------- -- Medicat ion Refill- REEMA KENNDEY 03/[address] [place] [address] [facility])(W arrior Op Med Cln Tm A Ad) [address] [place] [address])(War rior Op Med Cln Tm A Ad) OUTPATIENT [id number] physica l//[phone]. [phone] SHAI LOVE 04/01 Released w/o Limitations [address] [place] [address])(W arrior Op Med Cln Tm A Ad) [address] [place] [address])(Fam miroslava Med Tm B Non-AD BCC) TELE CONSULT [id number] Notes Entered by: DAREK ESPINOSA 04 May 2014 1335 ------- ------- ------- ------- -- Vitamin D Alphonso YORKDAREK AGGARWAL 05/04 Referred for Appointment [address] [place] [address] [facility])(F amily Med Tm B Non-AD BCC) [address] [place] [address])(Fam miroslava Med Tm B Non-AD BCC) TELE CONSULT [id number] Notes Entered by: GARCÍA MEDEL 03 Jun 2014 1142 ------- ------- ------- ------- -- Network Results - ORTHOPE DICS - 05/18/14 SHABBIRVLADISLAV Nichole 06/[address] [place] [address] [facility])(F amily Med Tm B Non-AD BCC) [address] [place] [address])(Fam miroslava Med Tm B Non-AD BCC) TELE CONSULT [id number] Notes Entered by: NAHOMY FRANCO 06 Jul 2014 0809 ------- ------- ------- ------- -- Network Results -ORTHOP EDICS 06/29/14 SHAI LOVE 07/[address] [place] [address] [facility])(F amily Med Tm B Non-AD BCC) [address] [place] [address])(Fam miroslava Med Tm B Non-AD BCC) TELE CONSULT [id number] Notes Entered by: EMELI GLEZ 25 Aug 2014 1222 ------- ------- ------- ------- -- Network Results -ORTHOP EDICS 08/17/14 SHAI LOVE 08/[address] [place] [address])(F amily Med Tm B Non-AD BCC) [address] [place] [address])(Fam miroslava Med Tm B Non-AD BCC) TELE CONSULT [id number] Notes Entered by: BENJY LUGO 31 Aug 2014 0735 ------- ------- ------- ------- -- Micare message /referr romina/RONNY Phillips 08/31 Referred for Appointment [address] [place] [address] Group [facility] [place]F amily Med Tm B Non-AD BCC) [address] [place] [address] [facility] [place]Fam miroslava Med Tm B Non-AD BCC) TELE CONSULT [id number] Notes Entered by: GARCÍA MEDEL 23 Sep 2014 1134 ------- ------- ------- ------- -- Network Results - CARDIOL OGY- 08/30/14 BELENBOSTON SMITH Lemuel 09/[address] [place] [address] Group [facility]F amily Med Tm B Non-AD BCC) [address] [place] [address] [facility]War rior Op Med Cln Tm A Ad) OUTPATIENT [id number] left foot pain//8 06.3975 ADITYA MAYS 10/27 Released w/o Limitations [address] [place] [address] [facility])(W arrior Op Med Cln Tm A Ad) [address] [place] [address] [facility])(War rior Op Med Cln Tm A Ad) OUTPATIENT [id number] f/u left foot pain/80 [phone] ADITYA MAYS 12/02 Released w/o Limitations [address] [place] [address] [facility])(W arrior Op Med Cln Tm A Ad) [address] [place] [address] [facility])(Fam miroslava Med Tm B Non-AD BCC) TELE CONSULT [id number] Notes Entered by: FABIAN PUCKETT 05 Dec 2014 1341 ------- ------- ------- ------- -- Normal x-ray result ADITYA MAYS 12/[address] [place] [address] Group [facility])(F amily Med Tm B Non-AD BCC) [address] [place] [address] [facility])(Fam miroslava Med Tm B Non-AD BCC) TELE CONSULT [id number] Notes Entered by: ABDULKADIR OCHOA 11 Jan 2015 0908 ------- ------- ------- ------- -- Network results - Podiatr y-01/11 VIKKI NOBLES 01/[address] [place] [address] [facility])(F amily Med Tm B Non-AD BCC) [address] [place] [address] [facility])(War rior Op Med Cln Tm A Ad) OUTPATIENT [id number] Annual Physica l and MED REFILL VIKKI NOBLES 02/15 Released w/o Limitations [address] [place] [address] [facility])(W arrior Op Med Cln Tm A Ad) [address] [place] [address] [facility])(War rior Op Med Cln Tm A Ad) TELE CONSULT [id number] Notes Entered by: HUNTER GUSMAN 16 Feb 2015 1543 ------- ------- ------- ------- -- TSH low VIKKI NOBLES 02/[address] [place] [address])(W arrior Op Med Cln Tm A Ad) [address] [place] [address])(Fam miroslava Med Tm B Non-AD BCC) TELE CONSULT [id number] Notes Entered by: GARCÍA MEDEL 14 Mar 2015 1136 ------- ------- ------- ------- -- Network Results - CARDIOL OGY- 5 VIKKI NOBLES 03/[address] [place] [address] [facility])(F amily Med Tm B Non-AD BCC) [address] [place] [address])(Fam miroslava Med Tm B Non-AD BCC) TELE CONSULT [id number] Notes Entered by: NAHOMI MAIN 23 May 2015 0809 ------- ------- ------- ------- -- [facility] Synthro id BRENT, HEIDI J 05/[address] [place] [address] [facility])(F amily Med Tm B Non-AD BCC) [address] [place] [address])(War rior Op Med Cln Tm A Ad) OUTPATIENT [id number] F/U Thyroid medicat ion - fatigue no energy - [phone] ADITYA MAYS 07/21 Released w/o Limitations [address] [place] [address])(W arrior Op Med Cln Tm A Ad) [address] [place] [address])(Fam miroslava Med Tm B Non-AD BCC) TELE CONSULT [id number] Notes Entered by: FABIAN PUCKETT 22 Jul 2015 1608 ------- ------- ------- ------- -- Lab results /Medica tion order HEIDI KENNEDY 07/[address] [place] [address])(F amily Med Tm B Non-AD BCC) [address] [place] [address])(War rior Op Med Cln Tm A Ad) TELE CONSULT [id number] Notes Entered by: JAMAICA VALENTIN 05 Aug 2015 0918 ------- ------- ------- ------- -- Ronit ackerman/[phone] JAMAICA JAUREGUI 08/[address] [place] [address])(W arrior Op Med Cln Tm A Ad) [address] [place] [address])(Fam miroslava Med Tm B Non-AD BCC) TELE CONSULT [id number] Notes Entered by: MAEGAN MANN 15 Sep 2015 1539 ------- ------- ------- ------- -- Ronit LIVE/ JAMAICA Bowers 09/[address] [place] [address])(F amily Med Tm B Non-AD BCC) [address] [place] [address])(Fam miroslava Med Tm B Non-AD BCC) TELE CONSULT [id number] Notes Entered by: ELSY NAM 06 Oct 2015 1320 ------- ------- ------- ------- -- Network results Cardiol ogy 6 VIKKI FLORENTINO 10/[address] [place] [address] [facility])(F amily Med Tm B Non-AD BCC) [address] [place] [address] [facility])(War rior Op Med Cln Tm A Ad) OUTPATIENT [id number] left knee pain / medicat ions ANGELA VEGA 10/26 Released w/o Limitations [address] [place] [address] [facility])(W arrior Op Med Cln Tm A Ad) [address] [place] [address] [facility])(Fam miroslava Med Tm B Non-AD BCC) TELE CONSULT [id number] Notes Entered by: MAEGAN MANN 07 Nov 2015 1022 ------- ------- ------- ------- -- Lab results request / Asael/ ANGELA Jones 11/[address] [place] [address] [facility])(F amily Med Tm B Non-AD BCC) [address] [place] [address])(Fam miroslava Med Tm B Non-AD BCC) TELE CONSULT [id number] Notes Entered by: ABDULKADIR OCHOA 23 Nov 2015 1212 ------- ------- ------- ------- -- Network results Physica l Therapy 016 VIKKI LAZO 11/[address] [place] [address] [facility])(F amily Med Tm B Non-AD BCC) [address] [place] [address])(Med ication Refill Clinic) TELE CONSULT [id number] Notes Entered by: Tamara SCHULZ 30 Nov 2015 1351 ------- ------- ------- ------- -- Micare renewal / MARTY Costello 11/[address] [place] [address])(Jazmin webb on Refill Clinic) [address] [place] [address])(Fam miroslava Med Tm B Non-AD BCC) TELE CONSULT [id number] Notes Entered by: MAEGAN MANN 02 Dec 2015 0742 ------- ------- ------- ------- -- Ronit parry / ASAEL/ Manuel neely/ JAMAICA Oliveira 12/[address] [place] [address])(F amily Med Tm B Non-AD BCC) [address] [place] [address])(Fam miroslava Med Tm B Non-AD BCC) TELE CONSULT [id number] Notes Entered by: ABDULKADIR OCHOA 07 Dec 2015 1513 ------- ------- ------- ------- -- Network results Podiatr y 016 ANGELA NAIDU 12/[address] [place] [address])(F amily Med Tm B Non-AD BCC) [address] [place] [address])(Fam miroslava Med Tm B Non-AD BCC) TELE CONSULT [id number] Notes Entered by: ABDULKADIR OCHOA 12 Dec 2015 1043 ------- ------- ------- ------- -- Network results Physica l Therapy 016 ANGELA DEL TORO 12/[address] [place] [address])(F amily Med Tm B Non-AD BCC) [address] [place] [address])(Fam miroslava Med Tm B Non-AD BCC) TELE CONSULT [id number] Notes Entered by: DAREK ESPINOSA 14 Feb 2016 0718 ------- ------- ------- ------- -- Asael [facility] Team 1: VIV Thompson 02/13 Other Not Elsewhere Classified [address] [place] [address])(F amily Med Tm B Non-AD BCC) [address] [place] [address])(Med ication Refill Clinic) TELE CONSULT [id number] Notes Entered by: Tamara SCHULZ 14 Feb 2016 1024 ------- ------- ------- ------- -- Asael bella / MARTY Costello 02/[address] [place] [address])([facility] on Refill [facility]) [address] [place] [address])(Fam miroslava Med Tm B Non-AD BCC) TELE CONSULT [id number] Notes Entered by: ABDULKADIR OCHOA 15 Feb 2016 1440 ------- ------- ------- ------- -- Network results Podiatr y 016 VIKKI LAZO 02/[address] [place] [address])(F amily Med Tm B Non-AD BCC) [address] [place] [address])(War rior Op Med Cln Tm A Ad) TELE CONSULT [id number] Notes Entered by: JONATAN CAMPUZANO 06 Mar 2016 144 ------- ------- ------- ------- -- Network Results Podiatr y 6 VIKKI HUNG 03/[address] [place] [address])(W arrior Op Med Cln Tm A Ad) [address] [place] [address])(Fam miroslava Med Tm B Non-AD BCC) TELE CONSULT [id number] Notes Entered by: ABDULKADIR OCHOA 02 Apr 2016 1410 ------- ------- ------- ------- -- Network results Physica l Therapy VIKKI MATTHEWS 04/[address] [place] [address])(F amily Med Tm B Non-AD BCC) [address] [place] [address])(Fam miroslava Med Tm B Non-AD BCC) TELE CONSULT [id number] Notes Entered by: ABDULKADIR OCHOA 11 Apr 2016 1540 ------- ------- ------- ------- -- Network results Cardiol ogy VIKKI MATTHEWS 04/[address] [place] [address])(F amily Med Tm B Non-AD BCC) [address] [place] [address])(Fam miroslava Med Tm B Non-AD BCC) TELE CONSULT [id number] Notes Entered by: ABDULKADIR OCHOA 24 Apr 2016 1223 ------- ------- ------- ------- -- Network results Physica l Therapy 016 VIKKI LAZO 04/[address] [place] [address])(F amily Med Tm B Non-AD BCC) [address] [place] [address])(War rior Op Med Cln Tm A Ad) TELE CONSULT [id number] Notes Entered by: VANIA BERNAL 30 Apr 2016 1234 ------- ------- ------- ------- -- UYoliC f/u John Antonio i - [phone] BRENT, HEIDI J 04/[address] [place] [address])(W arrior Op Med Cln Tm A Ad) [address] [place] [address])(Fam miroslava Med Tm B Non-AD BCC) TELE CONSULT [id number] Notes Entered by: ABDULKADIR OCHOA 04 May 2016 0948 ------- ------- ------- ------- -- Network results Urgent Care 016 VIKKI LAZO 05/[address] [place] [address])(F amily Med Tm B Non-AD BCC) [address] [place] [address])(War rior Op Med Cln Tm A Ad) OUTPATIENT [id number] f/u cheikh lala/618 .[phone] 75 VIKKI NOBLES 05/22 Released w/o Limitations [address] [place] [address] Group [facility])(W arrior Op Med Cln Tm A Ad) [address] [place] [address] [facility]War rior Op Med Cln Tm A Ad) OUTPATIENT [id number] Lf foot pain [id number] VIKKI NOBLES 07/09 Released w/o Limitations [address] [place] [address] Group [facility])(W arrior Op Med Cln Tm A Ad) [address] [place] [address] Group [facility])(War rior Op Med Cln Tm A Ad) OUTPATIENT [id number] jury paperwo rk/hand icap paperwo rk VIKKI NOBLES 07/26 Released w/o Limitations [address] [place] [address] Group [facility])(W arrior Op Med Cln Tm A Ad) [address] [place] [address] [facility])(War rior Op Med Cln Tm A Ad) OUTPATIENT [id number] F/u on Blood Pressur e, [phone] 5 VIKKI NOBLES 08/31 Released w/o Limitations [address] [place] [address] Group [facility])(W arrior Op Med Cln Tm A Ad) [address] [place] [address] [facility])(War rior Op Med Cln Tm A Ad) TELE CONSULT [id number] Notes Entered by: TYLER BORJAS 16 Oct 2016 1136 ------- ------- ------- ------- -- Network Results - Podiatr y 09/24/16 DREW ESCOTO 10/[address] [place] [address] Group [facility])(W arrior Op Med Cln Tm A Ad) [address] [place] [address] [facility])(War rior Op Med Cln Tm A Ad) TELE CONSULT [id number] Notes Entered by: DREW TEIXEIRA 07 Nov 2016 1358 ------- ------- ------- ------- -- Thyroid labs BRENT, HEIDI J 11/07 [facility])(W arrior Op Med Cln Tm A Ad) [address] [place] [address])(War rior Op Med Cln Tm A Ad) OUTPATIENT [id number] f/u DREW Maldonado 11/21 Released w/o Limitations [address] [place] [address])(W arrior Op Med Cln Tm A Ad) [address] [place] [address])(War rior Op Med Cln Tm A Ad) TELE CONSULT [id number] Notes Entered by: SALAS RAMIREZ 08 Jan 2017 0856 ------- ------- ------- ------- -- Lab HEIDI KENNEDY 01/[address] [place] [address])(W arrior Op Med Cln Tm A Ad) [address] [place] [address])( rior Op Med Cln Tm A Ad) TELE CONSULT [id number] Notes Entered by: Daniella CUNNINGHAM 16 Jan 2017 1535 ------- ------- ------- ------- -- ER Refusal -SX- Intermi ttent R Sided Chest pain/ Obszans / - [facility] HEIDI KENNEDY 01/[address] [place] [address])(W arrior Op Med Cln Tm A Ad) [address] [place] [address])(War rior Op Med Cln Tm A Ad) TELE CONSULT [id number] Notes Entered by: GURDEEP SENIOR 22 Jan 2017 0748 ------- ------- ------- ------- -- Physica l Therapy Referra l/Obsza nski HEIDI KENNEDY 01/[address] [place] [address])(W arrior Op Med Cln Tm A Ad) [address] [place] [address])(War rior Op Med Cln Tm A Ad) TELE CONSULT [id number] Notes Entered by: GURDEEP SENIOR 22 Jan 2017 0752 ------- ------- ------- ------- -- Network Results ADITYA Lundberg 01/[address] [place] [address])(W arrior Op Med Cln Tm A Ad) [address] [place] [address])(War rior Op Med Cln Tm A Ad) TELE CONSULT [id number] Notes Entered by: TREVON NAM 14 Feb 2017 1456 ------- ------- ------- ------- -- NIESHA Meraz 02/14 Referred for Appointment [address] [place] [address])(W arrior Op Med Cln Tm A Ad) [address] [place] [address])(Fam miroslava Med Tm B Non-AD BCC) TELE CONSULT [id number] Notes Entered by: Omkar MCKEON 08 Mar 2017 1430 ------- ------- ------- ------- -- Network results Physica l/Occup ational Therapy 02/04-1 17 ADITYA MCKEON 03/[address] [place] [address])(F amily Med Tm B Non-AD BCC) [address] [place] [address])(War rior Op Med Cln Tm A Ad) TELE CONSULT [id number] Notes Entered by: ZAK TURNER 14 Mar 2017 1508 ------- ------- ------- ------- -- ER F/U - Velasquez ki - - tsg BRENT, HEIDI J 03/[address] [place] [address])(W arrior Op Med Cln Tm A Ad) [address] [place] [address])(War rior Op Med Cln Tm A Ad) OUTPATIENT [id number] ER follow up for dizzine ss and diarrhe a ([facility]) also wants med refill HESHAM-TRI PLETT, GLENDA CHAU 03/18 Released w/o Limitations [address] [place] [address])(W arrior Op Med Cln Tm A Ad) [address] [place] [address])(War rior Op Med Cln Tm A Ad) TELE CONSULT [id number] Notes Entered by: PRASHANT CLANCYSCOTT ALISTAIR Espitia 29 Mar 2017 1345 ------- ------- ------- ------- -- New Referra topete/ HEIDI Beltran 03/[address] [place] [address])(W arrior Op Med Cln Tm A Ad) [address] [place] [address])(War rior Op Med Cln Tm A Ad) TELE CONSULT [id number] Notes Entered by: Therese FLORENCE 01 Apr 2017 1451 ------- ------- ------- ------- -- Network results Occupat ional/P hysical Therapy 7 TSB GLENDA CASTRO 04/[address] [place] [address])(W arrior Op Med Cln Tm A Ad) [address] [place] [address])(War rior Op Med Cln Tm A Ad) OUTPATIENT [id number] patient states that she has continu ed dizzine ss VIKKI NOBLES 04/12 Released w/o Limitations [address] [place] [address])(W arrior Op Med Cln Tm A Ad) [address] [place] [address] [facility])(Fam miroslava Med Tm B Non-AD BCC) TELE CONSULT [id number] Notes Entered by: SHIRLEY CARRERA 13 Apr 2017 0815 ------- ------- ------- ------- -- Network Results -Cardio logy 7 VIKKI NOBLES 04/[address] [place] [address])(F amily Med Tm B Non-AD BCC) [address] [place] [address])(War rior Op Med Cln Tm A Ad) TELE CONSULT [id number] Notes Entered by: Therese FLORENCE 17 Apr 2017 1136 ------- ------- ------- ------- -- Network results Occupat ional/P hysical Therapy 7 ISRAELB VIKKI NOBLES 04/[address] [place] [address])(W arrior Op Med Cln Tm A Ad) [address] [place] [address])(War rior Op Med Cln Tm A Ad) OUTPATIENT [id number] Lab results VIKKI NOBLES 04/17 Released w/o Limitations [address] [place] [address])(W arrior Op Med Cln Tm A Ad) [address] [place] [address])(War rior Op Med Cln Tm A Ad) TELE CONSULT [id number] Notes Entered by: CARITO HORTON 26 Apr 2017 1445 ------- ------- ------- ------- -- Network Results : Lunan cy Depart ent VIKKI NOBLES 04/[address] [place] [address])(W arrior Op Med Cln Tm A Ad) [address] [place] [address])(Fam miroslava Med Tm B Non-AD BCC) TELE CONSULT [id number] Notes Entered by: ABDULKADIR OCHOA 01 May 2017 0919 ------- ------- ------- ------- -- Network results Physica l/Occup ational Therapy 017 DMJ VIKKI NOBLES 05/[address] [place] [address])(F amily Med Tm B Non-AD BCC) [address] [place] [address])(War rior Op Med Cln Tm A Ad) TELE CONSULT [id number] Notes Entered by: HUNTER GUSMAN 30 May 2017 0822 ------- ------- ------- ------- -- ALEJO Blackwell 05/30 Other Not Elsewhere Classified [address] [place] [address])(W arrior Op Med Cln Tm A Ad) [address] [place] [address])(War rior Op Med Cln Tm A Ad) TELE CONSULT [id number] Notes Entered by: HUNTER GUSMAN 10 Jun 2017 1653 ------- ------- ------- ------- -- CT chest HEIDI KENNEDY 06/[address] [place] [address])(W arrior Op Med Cln Tm A Ad) [address] [place] [address])(War rior Op Med Cln Tm A Ad) OUTPATIENT [id number] Recurri ng left foot pain [id number] VIKKI NOBLES 07/24 Released w/o Limitations [address] [place] [address])(W arrior Op Med Cln Tm A Ad) [address] [place] [address])(War rior Op Med Cln Tm A Ad) TELE CONSULT [id number] Notes Entered by: ALEJO MANCERA 23 Aug 2017 1502 ------- ------- ------- ------- -- Micare/ med refill BRENTHEIDI Varela J 08/[address] [place] [address])(W arrior Op Med Cln Tm A Ad) [address] [place] [address])(Fam miroslava Med Tm B Non-AD BCC) TELE CONSULT [id number] Notes Entered by: MAEGAN MANN 29 Aug 2017 1611 ------- ------- ------- ------- -- referra l HEIDI KENNEDY 08/[address] [place] [address])(F amily Med Tm B Non-AD BCC) [address] [place] [address])(War rior Op Med Cln Tm A Ad) OUTPATIENT [id number] ongoign back pain x 2months ( call in afterno on) VIKKI NOBLES 11/05 Released w/o Limitations [address] [place] [address] [facility])(W arrior Op Med Cln Tm A Ad) [address] [place] [address])(War rior Op Med Cln Tm A Ad) TELE CONSULT [id number] Notes Entered by: THERESA WOOD 14 Jan 2018 1227 ------- ------- ------- ------- -- 1 Wk ER- Hospita l F/U Appt Request / Velasquez neely/ RAZ Capellan - KAMILLA Díaz 01/14 Released w/o Limitations [address] [place] [address] [facility])(W arrior Op Med Cln Tm A Ad) [address] [place] [address])( rior Op Med Cln Tm A Ad) OUTPATIENT [id number] f/u flu like symptom s VIKKI NOBLES 01/16 Released w/o Limitations [address] [place] [address] [facility])(W arrior Op Med Cln Tm A Ad) [address] [place] [address])(War rior Op Med Cln Tm A Ad) TELE CONSULT [id number] Notes Entered by: TRINI KENNEDY 11 Feb 2018 1530 ------- ------- ------- ------- -- MAURICE Funez 02/11 Referred for Appointment [address] [place] [address])(W arrior Op Med Cln Tm A Ad) [address] [place] [address])(Fam miroslava Med Tm B Non-AD BCC) TELE CONSULT [id number] Notes Entered by: JUNIOR COOMBS 21 Mar 2018 1336 ------- ------- ------- ------- -- Orthope garth MIRANDA ELYSSABETH N 03/21 Referred for Appointment [employer] [facility])(F amily Med Tm B Non-AD BCC) [facility])(War rior Op Med Cln Tm A Ad) TELE CONSULT [id number] Notes Entered by: ENRIQUE HAZEL 25 Mar 2018 1212 ------- ------- ------- ------- -- Referra l Not In System/ Obszans emeli/618. [phone] 5/clm MAURICE MIRANDA N 03/25 Released to Self Care [facility])(W arrior Op Med Cln Tm A Ad) [facility])(Fam miroslava Med Tm B Non-AD BCC) TELE CONSULT [id number] Notes Entered by: JUNIOR COOMBS 28 Mar 2018 1416 ------- ------- ------- ------- -- Medicat ion renewal MAURICE MIRANDA N 03/28 Referred for Appointment [employer] [facility])(F amily Med Tm B Non-AD BCC) [facility])(Fam miroslava Med Tm B Non-AD BCC) TELE CONSULT [id number] Notes Entered by: JUNIOR COOMBS 14 Apr 2018 1515 ------- ------- ------- ------- -- Referra l request RUBEN MAURICE N 04/14 Referred for Appointment [facility] [facility])(F amily Med Tm B Non-AD BCC) [facility])(War rior Op Med Cln Tm A Ad) TELE CONSULT [id number] Notes Entered by: THERESA WOOD 23 Apr 2018 1107 ------- ------- ------- ------- -- Knee Brace Referra l Request / Obsrenard / [facility] # - ajh MAURICE MIRANDA Kristyn 04/23 Released to Self Care [address] [place] [address])(W arrior Op Med Cln Tm A Ad) [address] [place] [address])(Fam miroslava Med Tm B Non-AD BCC) TELE CONSULT [id number] 6 Notes Entered by: LAVELL CORCORAN 25 Apr 2018 1118 ------- ------- ------- ------- -- Referra l ORALIA IBRAHIM 04/25 Referred for Appointment [address] [place] [address])(F amily Med Tm B Non-AD BCC) [address] [place] [address])(War rior Op Med Cln Tm A Ad) TELE CONSULT [id number] 6 Notes Entered by: DAREK ESPINOSA 29 May 2018 0919 ------- ------- ------- ------- -- [facility]: LIVE Preciado 05/29 Other Not Elsewhere Classified [address] [place] [address])(W arrior Op Med Cln Tm A Ad) [address] [place] [address])(War rior Op Med Cln Tm A Ad) OUTPATIENT [id number] 6 f/u labs/me dicatio n review/ VIKKI NOBLES 06/27 Released w/o Limitations [address] [place] [address])(W arrior Op Med Cln Tm A Ad) [address] [place] [address])(War rior Op Med Cln Tm A Ad) TELE CONSULT [id number] 4 Notes Entered by: Tamara WINSTON 16 Sep 2018 0836 ------- ------- ------- ------- -- Network results Orthope dics 019 VIKKI SHAH 09/[address] [place] [address])(W arrior Op Med Cln Tm A Ad) [address] [place] [address] Group [facility])(Fam miroslava Med Tm B Non-AD BCC) TELE CONSULT [id number] 0 Notes Entered by: LAVELL CORCORAN 22 Dec 2018 0935 ------- ------- ------- ------- -- Med refill ORALIA IBRAHIM 12/22 Referred for Appointment [address] [place] [address] Group [facility])(F amily Med Tm B Non-AD BCC) [address] [place] [address] [facility])(War rior Op Med Cln Tm A Ad) OUTPATIENT [id number] 3 L knee pain, SEPTEMBER NAN R 02/05 Released w/o Limitations [address] [place] [address] [facility])(W arrior Op Med Cln Tm A Ad) [address] [place] [address] [facility])(War rior Op Med Cln Tm A Ad) TELE CONSULT [id number] 8 Notes Entered by: ZAK TURNER 05 Feb 2019 1418 ------- ------- ------- ------- -- STAT ronit topete - PAULINA CRANDALL: Mari - - tsg MAGGIE BRYAN 02/05 Other Not Elsewhere Classified [address] [place] [address] [facility])(W arrior Op Med Cln Tm A Ad) [address] [place] [address] [facility])(Fam miroslava Med Tm B Non-AD BCC) TELE CONSULT [id number] 1 Notes Entered by: LAVELL CORCORAN 02 Mar 2019 1407 ------- ------- ------- ------- -- ORALAI Randall 03/02 Referred for Appointment [address] [place] [address] [facility])(F amily Med Tm B Non-AD BCC) [address] [place] [address] [facility])(War rior Op Med Cln Tm A Ad) TELE CONSULT [id number] 4 Notes Entered by: BRIDGET SOOD 07 Apr 2019 1021 ------- ------- ------- ------- -- Network results Radiolo gy 019 CARLOS FLYNN 04/[address] [place] [address])(W arrior Op Med Cln Tm A Ad) [address] [place] [address])(War rior Op Med Cln Tm A Ad) OUTPATIENT [id number] ER F/U - [place] [facility] d stomach pain ARTHUR NICOLE 04/21 Released w/o Limitations [address] [place] [address])(W arrior Op Med Cln Tm A Ad) [address] [place] [address])(War rior Op Med Cln Tm A Ad) TELE CONSULT [id number] 0 Notes Entered by: BRIDGET SOOD 12 Jun 2019 1211 ------- ------- ------- ------- -- Network results Ophthal mology 019 CARLOS FLYNN 06/[address] [place] [address])(W arrior Op Med Cln Tm A Ad) [address] [place] [address])(War rior Op Med Cln Tm A Ad) TELE CONSULT [id number] 9 Notes Entered by: BRIDGET SOOD 30 Jul 2019 1108 ------- ------- ------- ------- -- Network results Radiolo gy 020 BRE ISAAC 07/[address] [place] [address])(W arrior Op Med Cln Tm A Ad) [address] [place] [address])(War rior Op Med Cln Tm A Ad) TELE CONSULT [id number] 1 Notes Entered by: Daniella EMERY 03 Aug 2019 1318 ------- ------- ------- ------- -- Network results Orthope dics 019 ALD SEPTEMBERNAN R 08/[address] [place] [address])(W arrior Op Med Cln Tm A Ad) [address] [place] [address])(War rior Op Med Cln Tm A Ad) TELE CONSULT [id number] 8 Notes Entered by: GALEN VELÁSQUEZ 05 Aug 2019 1314 ------- ------- ------- ------- -- med refill/ GALEN Murphy 08/04 Medication Refill Forwarded [address] [place] [address])(W arrior Op Med Cln Tm A Ad) [address] [place] [address])(War rior Op Med Cln Tm A Ad) OUTPATIENT [id number] f/u on thyroid medicat ion, , *ESTELLE Dimas 11/03 Released w/o Limitations [address] [place] [address])(W arrior Op Med Cln Tm A Ad) [address] [place] [address])(War rior Op Med Cln Tm A Ad) TELE CONSULT [id number] 3 Notes Entered by: ESTELLE SMITH 09 Nov 2019 1220 ------- ------- ------- ------- -- lab results ESTELLE COLLADO 11/[address] [place] [address])(W arrior Op Med Cln Tm A Ad) [address] [place] [address])(War rior Op Med Cln Tm A Ad) TELE CONSULT [id number] 1 Notes Entered by: JANICE BARRY 19 Nov 2019 0934 ------- ------- ------- ------- -- Secure Message - RAMY Tse 11/18 Other Not Elsewhere Classified [address] [place] [address])(W arrior Op Med Cln Tm A Ad) [address] [place] [address])(War rior Op Med Cln Tm A Ad) TELE CONSULT [id number] Notes Entered by: JANICE BARRY 24 Dec 2019 1048 ------- ------- ------- ------- -- Secure Message - RAMY Whitman 12/23 Other Not Elsewhere Classified [address] [place] [address])(W arrior Op Med Cln Tm A Ad) [address] [place] [address])(War rior Op Med Cln Tm A Ad) TELE CONSULT [id number] 0 Notes Entered by: ESTELLE SMITH 12 Jan 2020 1300 ------- ------- ------- ------- -- lab results REJI HENRY 01/11 Released to Self Care [address] [place] [address])(W arrior Op Med Cln Tm A Ad) [address] [place] [address])(Fam miroslava Med Tm B Non-AD BCC) TELE CONSULT [id number] 4 Notes Entered by: Tamara WINSTON 12 Feb 2020 1454 ------- ------- ------- ------- -- Network results Ophthal joanne 020 DIONISIO BARRIENTOS 02/[address] [place] [address])(F amily Med Tm B Non-AD BCC) [address] [place] [address])(War rior Op Med Cln Tm A Ad) TELE CONSULT [id number] 7 Notes Entered by: MARIIA ESCOBAR 04 Mar 2020 1542 ------- ------- ------- ------- -- Secure msg: GALEN Oates 03/04 Released to Self Care [address] [place] [address])(W arrior Op Med Cln Tm A Ad) Procedures Combined list of: 1) Procedures from Department of Veterans Affairs facilities going back up to thelast 18 months, not all VA non-surgical procedures are included; 2) All procedures from the Department of Defense facilities. Procedure Procedure Type Code Date Perfomer Comments Sourc e WAIVER SERVICES; NOT OTHERWISE SPECIFIED (NOS) 11/05/19 20 DoD ONLINE ASSESS &MANAG SERV PROVIDE,A QUAL NONPHYS HCP TO AN ESTABLISHED PAT/GUARDIAN,NOT ORIGINAT FRM RELAT ASSESS &MANAG SERV PROVIDE W/IN THE PREV 7 DAYS,USE THE INTERNET/SIMILAR [employer] NETWORK 07/01/19 19 DoD TELE ASSESS & MGT SRV PROV QUAL NONPHYS HLTH CARE PRO TO EST PAT,PARENT,GUARD NOT ORIG REL ASSESS & MGT SRV PROV W/IN PREV 7 DAYS NOR LEAD ASSESS & MGT SRV/PX W/IN NXT 24 HR/SOON APT;5-10 MIN MED DIS 05/29/19 19 DoD TELE ASSESS & MGT SRV PROV QUAL NONPHYS HLTH CARE PRO TO EST PAT,PARENT,GUARD NOT ORIG REL ASSESS & MGT SRV PROV W/IN PREV 7 DAYS NOR LEAD ASSESS & MGT SRV/PX W/IN NXT 24H/SOON APT; 11-20 MIN MED DIS 04/23/20 18 DoD TELE ASSESS & MGT SRV PROV QUAL NONPHYS HLTH CARE PRO TO EST PAT,PARENT,GUARD NOT ORIG REL ASSESS & MGT SRV PROV W/IN PREV 7 DAYS NOR LEAD ASSESS & MGT SRV/PX W/IN NXT 24H/SOON APT; 11-20 MIN MED DIS 04/14/20 18 DoD TELE ASSESS & MGT SRV PROV QUAL NONPHYS HLTH CARE PRO TO EST PAT,PARENT,GUARD NOT ORIG REL ASSESS & MGT SRV PROV W/IN PREV 7 DAYS NOR LEAD ASSESS & MGT SRV/PX W/IN NXT 24H/SOON APT; 11-20 MIN MED DIS 03/28/20 18 DoD TELE ASSESS & MGT SRV PROV QUAL NONPHYS HLTH CARE PRO TO EST PAT,PARENT,GUARD NOT ORIG REL ASSESS & MGT SRV PROV W/IN PREV 7 DAYS NOR LEAD ASSESS & MGT SRV/PX W/IN NXT 24H/SOON APT; 11-20 MIN MED DIS 03/25/20 18 DoD TELE ASSESS & MGT SRV PROV QUAL NONPHYS HLTH CARE PRO TO EST PAT,PARENT,GUARD NOT ORIG REL ASSESS & MGT SRV PROV W/IN PREV 7 DAYS NOR LEAD ASSESS & MGT SRV/PX W/IN NXT 24H/SOON APT; 11-20 MIN MED DIS 03/21/20 18 DoD TELE ASSESS & MGT SRV PROV QUAL NONPHYS HLTH CARE PRO TO EST PAT,PARENT,GUARD NOT ORIG REL ASSESS & MGT SRV PROV W/IN PREV 7 DAYS NOR LEAD ASSESS & MGT SRV/PX W/IN NXT 24H/SOON APT; 11-20 MIN MED DIS 02/12/20 18 DoD TELE ASSESS & MGT SRV PROV QUAL NONPHYS HLTH CARE PRO TO EST PAT,PARENT,GUARD NOT ORIG REL ASSESS & MGT SRV PROV W/IN PREV 7 DAYS NOR LEAD ASSESS & MGT SRV/PX W/IN NXT 24 HR/SOON APT;5-10 MIN MED DIS 01/15/20 18 DoD ONLINE ASSESS &MANAG SERV PROVIDE,A QUAL NONPHYS HCP TO AN ESTABLISHED PAT/GUARDIAN,NOT ORIGINAT FRM RELAT ASSESS &MANAG SERV PROVIDE W/IN THE PREV 7 DAYS,USE THE INTERNET/SIMILAR ELECT COMM NETWORK 11/07/19 18 DoD TELE ASSESS & MGT SRV PROV QUAL NONPHYS HLTH CARE PRO TO EST PAT,PARENT,GUARD NOT ORIG REL ASSESS & MGT SRV PROV W/IN PREV 7 DAYS NOR LEAD ASSESS & MGT SRV/PX W/IN NXT 24 HR/SOON APT;5-10 MIN MED DIS 08/30/19 18 DoD TELE ASSESS & MGT SRV PROV QUAL NONPHYS HLTH CARE PRO TO EST PAT,PARENT,GUARD NOT ORIG REL ASSESS & MGT SRV PROV W/IN PREV 7 DAYS NOR LEAD ASSESS & MGT SRV/PX W/IN NXT 24 HR/SOON APT;5-10 MIN MED DIS 08/24/19 18 DoD ONLINE ASSESS &MANAG SERV PROVIDE,A QUAL NONPHYS HCP TO AN ESTABLISHED PAT/GUARDIAN,NOT ORIGINAT FRM RELAT ASSESS &MANAG SERV PROVIDE W/IN THE PREV 7 DAYS,USE THE [employer]/SIMILAR [employer] COMM NETWORK 04/17/20 17 DoD TELE ASSESS & MGT SRV PROV QUAL NONPHYS HLTH CARE PRO TO EST PAT,PARENT,GUARD NOT ORIG REL ASSESS & MGT SRV PROV W/IN PREV 7 DAYS NOR LEAD ASSESS & MGT SRV/PX W/IN NXT 24 HR/SOON APT;5-10 MIN MED DIS 03/29/20 17 DoD TELE ASSESS & MGT SRV PROV QUAL NONPHYS HLTH CARE PRO TO EST PAT,PARENT,GUARD NOT ORIG REL ASSESS & MGT SRV PROV W/IN PREV 7 DAYS NOR LEAD ASSESS & MGT SRV/PX W/IN NXT 24 HR/SOON APT;5-10 MIN MED DIS 02/15/20 17 DoD TELE ASSESS & MGT SRV PROV QUAL NONPHYS HLTH CARE PRO TO EST PAT,PARENT,GUARD NOT ORIG REL ASSESS & MGT SRV PROV W/IN PREV 7 DAYS NOR LEAD ASSESS & MGT SRV/PX W/IN NXT 24 HR/SOON APT;5-10 MIN MED DIS 01/23/20 17 DoD TELE ASSESS & MGT SRV PROV QUAL NONPHYS HLTH CARE PRO TO EST PAT,PARENT,GUARD NOT ORIG REL ASSESS & MGT SRV PROV W/IN PREV 7 DAYS NOR LEAD ASSESS & MGT SRV/PX W/IN NXT 24 HR/SOON APT;5-10 MIN MED DIS 01/17/20 17 DoD TELE ASSESS & MGT SRV PROV QUAL NONPHYS HLTH CARE PRO TO EST PAT,PARENT,GUARD NOT ORIG REL ASSESS & MGT SRV PROV W/IN PREV 7 DAYS NOR LEAD ASSESS & MGT SRV/PX W/IN NXT 24 HR/SOON APT;5-10 MIN MED DIS 04/30/20 16 DoD TELE ASSESS & MGT SRV PROV QUAL NONPHYS HLTH CARE PRO TO EST PAT,PARENT,GUARD NOT ORIG REL ASSESS & MGT SRV PROV W/IN PREV 7 DAYS NOR LEAD ASSESS & MGT SRV/PX W/IN NXT 24 HR/SOON APT;5-10 MIN MED DIS 12/02/19 16 DoD ONLINE ASSESS &MANAG SERV PROVIDE,A QUAL NONPHYS HCP TO AN ESTABLISHED PAT/GUARDIAN,NOT ORIGINAT FRM RELAT ASSESS &MANAG SERV PROVIDE W/IN THE PREV 7 DAYS,USE THE INTERNET/SIMILAR [employer] NETWORK 08/05/19 16 DoD TELE ASSESS & MGT SRV PROV QUAL NONPHYS HLTH CARE PRO TO EST PAT,PARENT,GUARD NOT ORIG REL ASSESS & MGT SRV PROV W/IN PREV 7 DAYS NOR LEAD ASSESS & MGT SRV/PX W/IN NXT 24 HR/SOON APT;5-10 MIN MED DIS 09/01/19 15 DoD TELE ASSESS & MGT SRV PROV QUAL NONPHYS HLTH CARE PRO TO EST PAT,PARENT,GUARD NOT ORIG REL ASSESS & MGT SRV PROV W/IN PREV 7 DAYS NOR LEAD ASSESS & MGT SRV/PX W/IN NXT 24 HR/SOON APT;5-10 MIN MED DIS 03/22/20 14 DoD TELE ASSESS & MGT SRV PROV QUAL NONPHYS HLTH CARE PRO TO EST PAT,PARENT,GUARD NOT ORIG REL ASSESS & MGT SRV PROV W/IN PREV 7 DAYS NOR LEAD ASSESS & MGT SRV/PX W/IN NXT 24 HR/SOON APT;5-10 MIN MED DIS 01/28/20 14 DoD TELE ASSESS & MGT SRV PROV QUAL NONPHYS HLTH CARE PRO TO EST PAT,PARENT,GUARD NOT ORIG REL ASSESS & MGT SRV PROV W/IN PREV 7 DAYS NOR LEAD ASSESS & MGT SRV/PX W/IN NXT 24 HR/SOON APT;5-10 MIN MED DIS 04/27/20 13 DoD CERVICAL OR VAGINAL CANCER SCREENING; PELVIC AND CLINICAL BREAST EXAMINATION 03/27/20 13 DoD EDUCATIONAL SUPPLIES, SUCH BOOKS, TAPES, AND PAMPHLETS, FOR THE PATIENT'S EDUCATION AT COST TO PHYSICIAN OR OTHER QUALIFIED HEALTH GEOTHERMAL OPERATIONS MANAGER 03/16/20 13 DoD TELE ASSESS & MGT SRV PROV QUAL NONPHYS HLTH CARE PRO TO EST PAT,PARENT,GUARD NOT ORIG REL ASSESS & MGT SRV PROV W/IN PREV 7 DAYS NOR LEAD ASSESS & MGT SRV/PX W/IN NXT 24 HR/SOON APT;5-10 MIN MED DIS 11/19/19 13 DoD TELE ASSESS & MGT SRV PROV QUAL NONPHYS HLTH CARE PRO TO EST PAT,PARENT,GUARD NOT ORIG REL ASSESS & MGT SRV PROV W/IN PREV 7 DAYS NOR LEAD ASSESS & MGT SRV/PX W/IN NXT 24H/SOON APT; 11-20 MIN MED DIS 08/22/19 13 DoD TELE ASSESS & MGT SRV PROV QUAL NONPHYS HLTH CARE PRO TO EST PAT,PARENT,GUARD NOT ORIG REL ASSESS & MGT SRV PROV W/IN PREV 7 DAYS NOR LEAD ASSESS & MGT SRV/PX W/IN NXT 24H/SOON APT; 11-20 MIN MED DIS 06/20/19 13 DoD TELE ASSESS & MGT SRV PROV QUAL NONPHYS HLTH CARE PRO TO EST PAT,PARENT,GUARD NOT ORIG REL ASSESS & MGT SRV PROV W/IN PREV 7 DAYS NOR LEAD ASSESS & MGT SRV/PX W/IN NXT 24H/SOON APT; 11-20 MIN MED DIS 02/08/20 12 DoD TELE ASSESS & MGT SRV PROV QUAL NONPHYS HLTH CARE PRO TO EST PAT,PARENT,GUARD NOT ORIG REL ASSESS & MGT SRV PROV W/IN PREV 7 DAYS NOR LEAD ASSESS & MGT SRV/PX W/IN NXT 24H/SOON APT; 11-20 MIN MED DIS 11/21/19 12 DoD TELE ASSESS & MGT SRV PROV QUAL NONPHYS HLTH CARE PRO TO EST PAT,PARENT,GUARD NOT ORIG REL ASSESS & MGT SRV PROV W/IN PREV 7 DAYS NOR LEAD ASSESS & MGT SRV/PX W/IN NXT 24H/SOON APT; 11-20 MIN MED DIS 06/20/19 12 DoD VITAL CAPACITY, TOTAL (SEPARATE PROCEDURE) 04/12/20 11 DoD TELE ASSESS & MGT SRV PROV QUAL NONPHYS HLTH CARE PRO TO EST PAT,PARENT,GUARD NOT ORIG REL ASSESS & MGT SRV PROV W/IN PREV 7 DAYS NOR LEAD ASSESS & MGT SRV/PX W/IN NXT 24 HR/SOON APT;5-10 MIN MED DIS 03/02/20 11 DoD TELE ASSESS & MGT SRV PROV QUAL NONPHYS HLTH CARE PRO TO EST PAT,PARENT,GUARD NOT ORIG REL ASSESS & MGT SRV PROV W/IN PREV 7 DAYS NOR LEAD ASSESS & MGT SRV/PX W/IN NXT 24H/SOON APT; 11-20 MIN MED DIS 01/26/20 11 DoD TELE ASSESS & MGT SRV PROV QUAL NONPHYS HLTH CARE PRO TO EST PAT,PARENT,GUARD NOT ORIG REL ASSESS & MGT SRV PROV W/IN PREV 7 DAYS NOR LEAD ASSESS & MGT SRV/PX W/IN NXT 24H/SOON APT; 11-20 MIN MED DIS 01/23/20 11 DoD TELE ASSESS & MGT SRV PROV QUAL NONPHYS HLTH CARE PRO TO EST PAT,PARENT,GUARD NOT ORIG REL ASSESS & MGT SRV PROV W/IN PREV 7 DAYS NOR LEAD ASSESS & MGT SRV/PX W/IN NXT 24 HR/SOON APT;5-10 MIN MED DIS 12/07/19 11 DoD TELE ASSESS & MGT SRV PROV QUAL NONPHYS HLTH CARE PRO TO EST PAT,PARENT,GUARD NOT ORIG REL ASSESS & MGT SRV PROV W/IN PREV 7 DAYS NOR LEAD ASSESS & MGT SRV/PX W/IN NXT 24H/SOON APT; 11-20 MIN MED DIS 11/03/19 11 DoD TELE ASSESS & MGT SRV PROV QUAL NONPHYS HLTH CARE PRO TO EST PAT,PARENT,GUARD NOT ORIG REL ASSESS & MGT SRV PROV W/IN PREV 7 DAYS NOR LEAD ASSESS & MGT SRV/PX W/IN NXT 24H/SOON APT; 11-20 MIN MED DIS 11/01/19 11 [facility] OPHTHALMOLOGICAL SERVICES: MEDICAL EXAMINATION AND EVALUATION WITH INITIATION OF DIAGNOSTIC AND TREATMENT PROGRAM; INTERMEDIATE, NEW PATIENT 10/12/19 11 DoD TELE ASSESS & MGT SRV PROV QUAL NONPHYS HLTH CARE PRO TO EST PAT,PARENT,GUARD NOT ORIG REL ASSESS & MGT SRV PROV W/IN PREV 7 DAYS NOR LEAD ASSESS & MGT SRV/PX W/IN NXT 24 HR/SOON APT;5-10 MIN MED DIS 09/05/19 11 DoD TELE ASSESS & MGT SRV PROV QUAL NONPHYS HLTH CARE PRO TO EST PAT,PARENT,GUARD NOT ORIG REL ASSESS & MGT SRV PROV W/IN PREV 7 DAYS NOR LEAD ASSESS & MGT SRV/PX W/IN NXT 24 HR/SOON APT;5-10 MIN MED DIS 04/26/20 10 [facility] ELECTROCARDIOGRAM, ROUTINE ECG WITH AT LEAST 12 LEADS; INTERPRETATION AND REPORT ONLY 12/01/19 [facility] ELECTROCARDIOGRAM, ROUTINE ECG WITH AT LEAST 12 LEADS; TRACING ONLY, WITHOUT INTERPRETATION AND REPORT 10/25/19 [facility] ELECTROCARDIOGRAM, ROUTINE ECG WITH AT LEAST 12 LEADS; INTERPRETATION AND REPORT ONLY 05/04/20 [facility] ELECTROCARDIOGRAM, ROUTINE ECG WITH AT LEAST 12 LEADS; TRACING ONLY, WITHOUT INTERPRETATION AND REPORT 04/14/20 [facility] TETANUS, DIPHTHERIA TOXOIDS AND ACELLULAR PERTUSSIS VACCINE (TDAP), WHEN ADMINISTERED TO INDIVIDUALS 7 YEARS OR OLDER, FOR INTRAMUSCULAR USE 06/04/19 [facility] CERVICAL OR VAGINAL CANCER SCREENING; PELVIC AND CLINICAL BREAST EXAMINATION 05/26/19 [facility] ELECTROCARDIOGRAM, ROUTINE ECG WITH AT LEAST 12 LEADS; WITH INTERPRETATION AND REPORT 10/29/19 08 [facility] COLONOSCOPY, FLEXIBLE; WITH REMOVAL OF FOREIGN BODY(S) 10/21/19 08 [facility] INTRAVENOUS INFUSION, HYDRATION; INITIAL, 31 MINUTES TO 1 HOUR 06/17/19 08 [facility] VISUAL FIELD EXAMINATION, UNI OR BILATERAL, WITH MEDICAL DIAGNOSTIC EVAL; INTERMEDIATE EXAM (EG, AT LEAST 2 ISOPTERS ON GOLDMANN PERIMETER, OR SEMIQUANT, AUTO SUPRATHRESHOLD SCREEN PROGRAM, [place] 06/06/19 08 [facility] INFUSION, NORMAL SALINE SOLUTION, 250 CC 06/15/19 06 [facility] SCREENING PAPANICOLAOU SMEAR; OBTAINING, PREPARING AND CONVEYANCE OF CERVICAL OR VAGINAL SMEAR TO LABORATORY 08/10/19 04 [facility] CERVICAL OR VAGINAL CANCER SCREENING; PELVIC AND CLINICAL BREAST EXAMINATION 05/15/19 03 [facility] Internet Med Svc Qual Nonphys Healthcare Prof Estab Patient Internet Med Svc Qual Nonphys Healthcare Prof Estab Patient [id number] 07/01/19 19 VIKKI NOBLES [facility] Non-Physician Phone Call To Patient/Provider Brief (5-10min) Non-Physician Phone Call To Patient/Provider Brief (5-10min) [id number] 05/29/19 19 KAMILLA STEWART Internet Med Svc Qual Nonphys Healthcare Prof Estab Patient Internet Med Svc Qual Nonphys Healthcare Prof Estab Patient [id number] 05/29/19 19 KAMILLA STEWART Non-Physician Phone Call To Pt/Provider Intermed (11-20 min) Non-Physician Phone Call To Pt/Provider Intermed (11-20 min) [id number] 04/23/20 18 MARCELLO MIRANDABEMAYO N [facility] Non-Physician Phone Call To Pt/Provider Intermed (11-20 min) Non-Physician Phone Call To Pt/Provider Intermed (11-20 min) [id number] 04/22/20 18 JOSHUA MIRANDASABETH N [facility] Non-Physician Phone Call To Pt/Provider Intermed (11-20 min) Non-Physician Phone Call To Pt/Provider Intermed (11-20 min) [id number] 04/08/20 18 JOB MIRANDAYSSABETH N [facility] Non-Physician Phone Call To Pt/Provider Intermed (11-20 min) Non-Physician Phone Call To Pt/Provider Intermed (11-20 min) [id number] 03/25/20 18 RUBENMAURICE COLBY [facility] Non-Physician Phone Call To Pt/Provider Intermed (11-20 min) Non-Physician Phone Call To Pt/Provider Intermed (11-20 min) [id number] 02/20/20 18 MAURICE MIRANDA [facility] Non-Physician Phone Call To Patient/Provider Brief (5-10min) Non-Physician Phone Call To Patient/Provider Brief (5-10min) [id number] 01/15/20 18 KAMILLA STEWART [facility] Internet Med Svc Qual Nonphys Healthcare Prof Estab Patient Internet Med Svc Qual Nonphys Healthcare Prof Estab Patient [id number] 11/07/19 18 VIKKI NOBLES [facility] Non-Physician Phone Call To Patient/Provider Brief (5-10min) Non-Physician Phone Call To Patient/Provider Brief (5-10min) [id number] 09/06/19 18 BRENT, HEIDI J [facility] Non-Physician Phone Call To Patient/Provider Brief (5-10min) Non-Physician Phone Call To Patient/Provider Brief (5-10min) [id number] 08/27/19 18 BRENT, HEIDI J [facility] Internet Med Svc Qual Non[facility] Healthcare Prof Estab Patient Internet Med Svc Qual Nonphys Healthcare Prof Estab Patient [id number] 04/17/20 17 VIKKI NOBLES [facility] Non-Physician Phone Call To Patient/Provider Brief (5-10min) Non-Physician Phone Call To Patient/Provider Brief (5-10min) [id number] 04/11/20 17 BRENT, HEIDI J DoD Non-Physician Phone Call To Patient/Provider Brief (5-10min) Non-Physician Phone Call To Patient/Provider Brief (5-10min) [id number] 03/20/20 17 BRENT, HEIDI J [facility] Non-Physician Phone Call To Patient/Provider Brief (5-10min) Non-Physician Phone Call To Patient/Provider Brief (5-10min) [id number] 03/01/20 17 NIESHA WISE [facility] Non-Physician Phone Call To Patient/Provider Brief (5-10min) Non-Physician Phone Call To Patient/Provider Brief (5-10min) [id number] 01/23/20 17 BRENT, HEIDI J [facility] Non-Physician Phone Call To Patient/Provider Brief (5-10min) Non-Physician Phone Call To Patient/Provider Brief (5-10min) [id number] 01/18/20 17 BRENTHEIDI [facility] Non-Physician Phone Call To Patient/Provider Brief (5-10min) Non-Physician Phone Call To Patient/Provider Brief (5-10min) [id number] 04/30/20 16 BRENT, HEIDI Dahl [facility] Non-Physician Phone Call To Patient/Provider Brief (5-10min) Non-Physician Phone Call To Patient/Provider Brief (5-10min) [id number] 12/06/19 16 JAMAICA JAUREGUI [facility] Internet Med Svc Qual Nonphys Healthcare Prof Estab Patient Internet Med Svc Qual Nonphys Healthcare Prof Estab Patient [id number] 08/05/19 16 JAMAICA JAUREGUI [facility] Non-Physician Phone Call To Patient/Provider Brief (5-10min) Non-Physician Phone Call To Patient/Provider Brief (5-10min) [id number] 09/01/19 15 RONNY RAMÍREZ [facility] Non-Physician Phone Call To Patient/Provider Brief (5-10min) Non-Physician Phone Call To Patient/Provider Brief (5-10min) [id number] 03/25/20 14 REEMA KENNEDY [facility] Non-Physician Phone Call To Patient/Provider Brief (5-10min) Non-Physician Phone Call To Patient/Provider Brief (5-10min) [id number] 02/02/20 14 ABELINO KRUEGER [facility] Non-Physician Phone Call To Patient/Provider Brief (5-10min) Non-Physician Phone Call To Patient/Provider Brief (5-10min) [id number] 04/28/20 13 ABELINO KRUEGER [facility] Cervical or vaginal cancer screening; pelvic and clinical breast examination 03/27/20 13 JAKE JOHNSTON [facility] -Supervised Services Provision Of Educational Supplies -Supervised Services Provision Of Educational Supplies [id number] 03/16/20 13 IVAN STEPHENS [facility] Non-Physician Phone Call To Patient/Provider Brief (5-10min) Non-Physician Phone Call To Patient/Provider Brief (5-10min) [id number] 11/19/19 13 GABINO SCHILLING [facility] Non-Physician Phone Call To Pt/Provider Intermed (11-20 min) Non-Physician Phone Call To Pt/Provider Intermed (11-20 min) [id number] 08/26/19 13 OTT, WALDO Trotter Non-Physician Phone Call To Pt/Provider Intermed (11-20 min) Non-Physician Phone Call To Pt/Provider Intermed (11-20 min) [id number] 06/20/19 13 OTT, WALDO Trotter Non-Physician Phone Call To Pt/Provider Intermed (11-20 min) Non-Physician Phone Call To Pt/Provider Intermed (11-20 min) [id number] 02/11/20 12 OTT, WALDO Trotter Non-Physician Phone Call To Pt/Provider Intermed (11-20 min) Non-Physician Phone Call To Pt/Provider Intermed (11-20 min) [id number] 11/23/19 12 OTT, WALDO Trotter Non-Physician Phone Call To Pt/Provider Intermed (11-20 min) Non-Physician Phone Call To Pt/Provider Intermed (11-20 min) [id number] 06/22/19 12 OTT, WALDO Trotter Pulmonary Function Tests Peak Expiratory Flow Pulmonary Function Tests Peak Expiratory Flow [id number] 04/12/20 11 SHIRLEY VENEGAS Reviewed results [facility] Non-Physician Phone Call To Patient/Provider Brief (5-10min) Non-Physician Phone Call To Patient/Provider Brief (5-10min) [id number] 03/05/20 11 OTT, WALDO Trotter Non-Physician Phone Call To Pt/Provider Intermed (11-20 min) Non-Physician Phone Call To Pt/Provider Intermed (11-20 min) [id number] 02/01/20 11 OTT, WALDO Trotter Non-Physician Phone Call To Pt/Provider Intermed (11-20 min) Non-Physician Phone Call To Pt/Provider Intermed (11-20 min) [id number] 01/23/20 11 OTT, WALDO Trotter Non-Physician Phone Call To Patient/Provider Brief (5-10min) Non-Physician Phone Call To Patient/Provider Brief (5-10min) [id number] 12/12/19 11 PAIGE JIMENEZ [facility] Non-Physician Phone Call To Pt/Provider Intermed (11-20 min) Non-Physician Phone Call To Pt/Provider Intermed (11-20 min) [id number] 11/07/19 11 OTT, WALDO Trotter Non-Physician Phone Call To Pt/Provider Intermed (11-20 min) Non-Physician Phone Call To Pt/Provider Intermed (11-20 min) [id number] 11/02/19 11 WALDO OTT [facility] Ophthalmological New Patient Start Intermediate Level Care Ophthalmological New Patient Start Intermediate Level Care [id number] 10/12/19 11 CHUCKIE KENNEDY [facility] Non-Physician Phone Call To Patient/Provider Brief (5-10min) Non-Physician Phone Call To Patient/Provider Brief (5-10min) [id number] 09/06/19 11 PAIGE JIMENEZ [facility] Non-Physician Phone Call To Patient/Provider Brief (5-10min) Non-Physician Phone Call To Patient/Provider Brief (5-10min) [id number] 04/27/20 10 DOMINICK LUDWIG [facility] ECG Interpretation And Report Only ECG Interpretation And Report Only [id number] 12/01/19 10 CARMEN CLEVELAND [facility] ECG 12-Lead With Interpretation And Report ECG 12-Lead With Interpretation And Report [id number] 10/25/19 10 AMALIA SEWELL NSR, normal pulse, normal EKG [facility] ECG Interpretation And Report Only ECG Interpretation And Report Only [id number] 05/04/20 09 CARMEN CLEVELAND [facility] ECG 12-Lead With Interpretation And Report ECG 12-Lead With Interpretation And Report [id number] 04/14/20 09 AMALIA SEWELL [facility] Psychoactive Medication Management Psychoactive Medication Management [id number] 08/26/19 09 AMALIA SEWELL [facility] Cervical or vaginal cancer screening; pelvic and clinical breast examination 07/16/19 09 AMALIA SEWELL [facility] Tdap Vaccine Tdap Vaccine [id number] 06/04/19 09 TABITHA TSANG [facility] Immunization Administration Each Additional Vaccine 06/04/19 09 TABITHA TSANG [facility] Influenza Split Virus Vaccine Age 3+ Years Intramuscular 06/04/19 09 TABITHA TSANG [facility] Immunization Administration One Vaccine Immunization Administration One Vaccine [id number] 06/04/19 09 TABITHA TSANG [facility] ECG 12-Lead ECG 12-Lead [id number] 10/29/19 08 QUYNH PARK [facility] Complete Colonoscopy Cecum 10/21/19 08 ERWIN BOB [facility] Parenteral Fluids IV Infusion Each Additional Hour 06/17/19 08 ABDULKADIR SEWELL [facility] Parenteral Fluids IV Infusion 06/17/19 08 ABDULKADIR SEWELL [facility] Determination Of Refractive State Determination Of Refractive State [id number] 06/06/19 08 SHEEBA SANDY [facility] Visual Londono Test Intermediate Examination Visual Londono Test Intermediate Examination [id number] 06/06/19 08 SHEEBA SANDY [facility] Ophthalmological New Patient Start Comprehensive Care Ophthalmological New Patient Start Comprehensive Care [id number] 06/06/19 08 SHEEBA SANDY [facility] Waiver services; not otherwise specified (NOS) ESTELLE COLLADO [facility] Social History Combined list of available smoking, tobacco, and other social history from Department of Defense and Veterans Affairs facilities. Social History Type Response Date Comment Sourc e This section is an empty social history section. DoD
[2024-10-29] MEDS: ACETAMINOPHEN 500 MG TABLET 1000 MG PO (06:25)
[2024-10-29] MEDS: LACTATED RINGERS 1,000 ML 30 ML IV CONT ×2 (06:30→10:49)
[2024-10-29] MEDS: TRANEXAMIC ACID 1,000MG/ISO100 1,000 MG/100 ML BAG 200 MG IVPB (06:30)
[2024-10-29] MEDS: VANCOMYCIN 1,250 MG/NS 250 ML BAG 166.67 MG IVPB (06:30)
--- NOTE | 2024-10-29 07:07 | WPDHPUPDATE1 ---
History and Physical Update Update Date/Time: 10/29/24 07:07 History and Physical has been reviewed, including an updated exam of the patient. There are NO changes in the patient's condition. Risks, benefits, and alternatives have been discussed and questions answered. Patient agrees to proceed with procedure.
--- NOTE | 2024-10-29 07:25 | P.PNAN_ITS ---
Anes - Initial Pre Proc Eval Procedure: Operation Date: 10/29/24 07:30 Proposed Procedures p Left Total Knee Arthroplasty - Jemal Wilson MD Date/Time: 10/29/24 07:25 Surgeon: Jemal Wilson MD Pre Op Diagnosis: oa left knee Patient Data Age: 69 Gender: F Height: 1.66 m Weight: 87.3 kg Last Vital Signs Temp 97.4 F L 10/29/24 07:20 Pulse 73 10/29/24 07:20 Resp 16 10/29/24 07:20 BP 130/75 10/29/24 07:20 Pulse Ox 100 10/29/24 07:20 O2 Del Method Room Air 10/29/24 07:20 Allergies Allergy/AdvReac Type Severity Reaction Status Date / Time Penicillins AdvReac Intermediate Fainting Verified 10/29/24 07:13 morphine AdvReac Unknown SYNCOPE Verified 10/29/24 07:13 Home Medications ?Medication ?Instructions ?Recorded ?Confirmed ?Type cholecalciferol (vitamin D3) 25 25 mcg PO DAILY 07/13/19 10/29/24 History mcg (1,000 unit) capsule (Vitamin D3) levothyroxine 125 mcg tablet 125 mcg PO DAILY 07/13/19 10/29/24 History (Synthroid) rosuvastatin 10 mg tablet 10 mg PO DAILY 07/13/19 10/29/24 History amlodipine 5 mg tablet (Norvasc) 5 mg PO DAILY 07/20/24 10/29/24 History fludrocortisone 0.1 mg tablet 0.05 mg PO DAILY 07/20/24 10/29/24 History polyethylene glycol 3350 17 17 g PO DAILY PRN constipation 07/20/24 10/06/24 History gram/dose oral powder (Miralax) ropinirole 1 mg tablet 5 mg PO QPM 07/20/24 10/29/24 History aspirin 81 mg capsule 243 mg PO DAILY PRN pain 10/06/24 10/29/24 History cyanocobalamin (vitamin B-12) 1,000 mcg PO DAILY 10/06/24 10/06/24 History 1,000 mcg capsule galcanezumab-gnlm 120 mg/mL 120 mg subcut MONTHLY 10/06/24 10/29/24 History subcutaneous pen injector (Emgality Pen) amitriptyline 50 mg tablet 50 mg PO HS 10/12/24 10/29/24 History lisinopril 5 mg tablet 5 mg PO DAILY 10/12/24 10/29/24 History Laboratory Tests 10/29/24 06:34 Blood Type Pending Antibody Screen Pending Patient hx anesthesia problems: none Family hx anesthesia problems: none Results Review: All pre-operative results and documents have been reviewed as part of the pre- operative evaluation. PMFSH Past Medical History Medical History Hypothyroidism GERD (gastroesophageal reflux disease) Hypercholesteremia Surgical History Surgical History History of hysterectomy Family History Family History (Updated 07/20/24 @ 10:02 by Leigh Atkinson CMA) Father Cerebrovascular accident Social History Social History (Updated 07/20/24 @ 10:02 by Leigh Atkinson CMA) Smoking status: Never smoker Alcohol intake: never Substance use: never Do You Feel Safe in your Home?: Yes Lack of Transportation: No Lack of Food: Never True Current Housing: I Have Housing Concerned About Future Housing: No Difficulty Paying Gas/Electric Bills: No Difficulty Paying for Meds: No Currently Unemployed: No Education: High School Diploma/GED Difficulty w/ Childcare or Family Care: No Living arrangements: with family Additional living arrangements comments: [facility] Spiritual care concerns: No Anes - Eval Final PreProcedure Day of Procedure 10/29/24 07:25 Patient weight: obese Heart: regular rate and rhythm Lungs: clear to auscultation Airway: Mallampati scale class II Neurological: alert and oriented Last oral intake: >/= 8 hours ASA classification: III Emergent: no Anesthetic plan: proceed Anesthesia type and monitoring: general ETT and standard monitoring Results Review: All pre-operative results and documents have been reviewed as part of the pre- operative evaluation. Informed Consent: The patient's anesthetic plan and its attendant risks and benefits were discussed with the patient/family/POA. Questions were solicited and answers provided to the satisfaction of the patient/family/POA.
[2024-10-29] MEDS: ceFAZolin 2 GM/D5W 50 ML 2 GM/50 ML BAG IVPB ×3 (07:38→23:15)
[2024-10-29] MEDS: SODIUM CHLORIDE 0.9% IV 38.7 ML, ROPivacaine HCL 1% 200 MG, KETOROLAC INJ (*BKC) 15 MG,... INFILTRATE (08:05)
[2024-10-29] MEDS: ceFAZolin SODIUM 1 GM VIAL 3 GM IRRIGATION (08:07)
[2024-10-29] MEDS: GENTAMICIN BONE CEMENT REFOBACIN 1 EACH TOPICAL (09:45)
[2024-10-29] MEDS: KETOROLAC 15 MG/ML VIAL (*BKC) IV PUSH ×2 (10:00→16:33)
[2024-10-29] MEDS: ceFAZolin SODIUM 1 GM VIAL IV PUSH (10:03)
[2024-10-29] MEDS: TRANEXAMIC ACID 1,000 MG/10 ML AMPUL 1000 MG IV PUSH (10:05)
--- NOTE | 2024-10-29 10:57 | PM.OP ---
Procedure Note - Brief Procedure Note - Brief Date of procedure: 10/29/24 oa left knee Procedure performed: Left total knee arthroplasty Surgeon: RADHA Dunbar Findings: 69-year-old female underwent left total knee arthroplasty on 10/29. I was involved procedure including positioning the patient on the OR table in 1st assisting through the time surgery. Total time spent was 3 hours
--- NOTE | 2024-10-29 10:59 | W.PM.PROC2 ---
Procedure Note - Detailed Date of Procedure 10/29/24 Pre-op Diagnosis oa left knee Post-op Diagnosis Same Procedure Performed Left total knee arthroplasty Surgeon Jemal Wilson MD Television Maintenance Man Aníbal Murray PA-C Anesthesia General Description of Procedure Patient was brought to the operating room and general anesthesia was administered. She received 2 g of Ancef weight based vancomycin 1 g of TXA preoperatively. The left knee was prepped and draped in usual fashion. Under anesthesia as she hyperextended about 1 degree. The left knee was prepped draped usual fashion. Limb was exsanguinated tourniquet elevated to 275 mmHg. A 6 in longitudinal incision was made and a vastus medialis splitting approach utilized clean the vastus medialis at this level of the superior pole patella. Partial excision of infrapatellar fat pad was performed quadriceps synovectomy carried out. Suprapatellar fat pad partially excised. The patella had intact articular cartilage and was felt to be suitable for non resurfacing. A minimal lateral facetectomy was performed. A guide julianne was inserted on femoral canal after aspiration of canal contents using the 5 degree valgus cutting bushing 8 mm of bone removed the distal femur. Next the tibial plateau was cut. Cut was made just under the subchondral bone posteriorly and perpendicular to the axis of the tibia. Meniscal remnants were excised. The PCL was recessed. Flexion gap measured 8 mm medially and 12 mm laterally. The sizing guide was applied to the distal femur set at 5? of external rotation which matched Whitesides line. Posterior referencing pinholes were placed and the size 60 vanguard AP cutting block was applied AP and chamfer cuts were made. The the 60 fit line to line medial to lateral and rested on the anterior cortex proximally. Tibia was sized to a 63 which fit line to line anteromedial to posterolateral at proper rotation. This was punched. Bone quality was very good. We trialed with the 10 insert and found the knee to be appropriate at 90? with 2 mm medial 1 mm of lateral opening at 90?. The knee lacked about 7 or 8? of extension with no play medially or laterally. Therefore an additional 2 mm of bone was removed the distal femur chamfer cuts revisited. At this time the knee lacked about 3 or 4? of extension and had 2 mm of medial opening in this position no lateral opening. We assessed the flexion gaps with laminar spreaders and we can see that we were still little bit tighter laterally. The lateral capsule and iliotibial band was pie crusted allowing it to elongate and the posterolateral capsule was released anterior to the lateral collateral ligament to the popliteus tendon at the level of the joint line. On read trialing the knee had a positive bounce and was almost at full extension with 2 mm of medial and 2 mm of lateral opening in this position. Therefore a conservative central posterior capsule release was performed and on read trialing the knee came out to full extension with negative bounce of 1-2 medial and 1-2 lateral opening. There was central patellar tracking throughout range of motion. We had put the tourniquet down at about 80 minutes and limb was exsanguinated tourniquet elevated again to 300 mmHg and the bony surfaces were prepared with step drill and irrigated and dried. Using 2 batches of methylmethacrylate 1 the gentamicin powder the cement was immediately applied to the 63 vanguard tibial tray and the size 60 left CR femoral component. Cement was applied the tibial plateau and canal and pressurized tibial component fully seated cement applied the femur the femoral component fully seated the knee brought to extension with the 11 mm 5 and 1 insert for cement pressurization. Tourniquet was released total tourniquet time approximally 95 minutes. After cement hardening excess cement was sought for removed and hemostasis was achieved. We trialed the 10 insert and had the same range of motion knee and stability findings as above. The real 10 insert was placed locked with a locking pin range of motion stability and patellar tracking reconfirmed. Arthrotomy was closed with a number 2 Vicryl 1. Unidirectional barbed Stratafix suture and the split with 1. Vicryl. With the arthrotomy closed there was full extension with negative bounce and gravity flexion to 125. Skin was closed with 2 subcutaneous Vicryl 3-0 subcuticular Monocryl and glue. EBL was 200 cc. Two additional g of Ancef and 1 g of TXA given time wound closure. There were no complications and she was transferred postop recovery room in stable condition.
[2024-10-29] MEDS: fentaNYL CITRATE INJ (*CRX) 100 MCG/2 ML VIAL 25 MCG IV PUSH ×4 (11:10→11:55)
--- NOTE | 2024-10-29 14:21 | P.CONIM_ITS ---
Assessment and Plan Assessment and plan (1) Primary osteoarthritis of left knee: Code(s): M17.12 - Unilateral primary osteoarthritis, left knee Status: Acute Assessment and Plan: Status postop left knee total arthroplasty by Orthopedics on 10/29/2024 Eliquis Postop antibiotics Pain management per Ortho Activity as tolerated A.m. labs (2) Hypercholesteremia: Code(s): E78.00 - Pure hypercholesterolemia, unspecified Status: Acute Assessment and Plan: Continue Crestor (3) Hypothyroidism: Code(s): E03.9 - Hypothyroidism, unspecified Status: Acute Assessment and Plan: Continue levothyroxine (4) Hypertension: Code(s): I10 - Essential (primary) hypertension Status: Acute Assessment and Plan: Orthopedics holding lisinopril Continue Norvasc HPI Date of Consult Consult date: 10/29/24 Requesting Physician: Jemal Wilson MD Primary Care Provider: Keyona Black, SEMICONDUCTOR ENGINEER Consult Narrative Reason for consult: Medical management Narrative: Noemy Sanz is a 69 year old female past medical history of hypothyroidism, GERD, hyperlipidemia and osteoarthritis of left knee presents the hospital for planned total knee arthroplasty. Patient seen after surgery. Patient states that her pain is controlled after surgery and she has been up and down to the bathroom. She denies nausea or vomiting. She states that her knee is slightly swollen. Review of Systems Review of Systems: 12 systems were reviewed and are negativ e except for as per HPI. PMF Past Medical History Medical History (Updated 10/29/24 @ 14:23 by Keyona Zee APRN) Hypothyroidism GERD (gastroesophageal reflux disease) Hypercholesteremia Surgical History Surgical History History of hysterectomy Family History Family History (Updated 07/20/24 @ 10:02 by Leigh Atkinson CMA) Father Cerebrovascular accident Social History Social History (Updated 07/20/24 @ 10:02 by Leigh Atkinson CMA) Smoking status: Never smoker Alcohol intake: never Substance use: never Do You Feel Safe in your Home?: Yes Lack of Transportation: No Lack of Food: Never True Current Housing: I Have Housing Concerned About Future Housing: No Difficulty Paying Gas/Electric Bills: No Difficulty Paying for Meds: No Currently Unemployed: No Education: High School Diploma/GED Difficulty w/ Childcare or Family Care: No Living arrangements: with family Additional living arrangements comments: [facility] Spiritual care concerns: No Meds Home Medications and Allergies Home Medications ?Medication ?Instructions ?Recorded ?Confirmed ?Type cholecalciferol (vitamin D3) 25 25 mcg PO DAILY 07/13/19 10/29/24 History mcg (1,000 unit) capsule (Vitamin D3) levothyroxine 125 mcg tablet 125 mcg PO DAILY 07/13/19 10/29/24 History (Synthroid) rosuvastatin 10 mg tablet 10 mg PO DAILY 07/13/19 10/29/24 History amlodipine 5 mg tablet (Norvasc) 5 mg PO DAILY 07/20/24 10/29/24 History fludrocortisone 0.1 mg tablet 0.05 mg PO DAILY 07/20/24 10/29/24 History polyethylene glycol 3350 17 17 g PO DAILY PRN constipation 07/20/24 10/06/24 History gram/dose oral powder (Miralax) ropinirole 1 mg tablet 5 mg PO QPM 07/20/24 10/29/24 History aspirin 81 mg capsule 243 mg PO DAILY PRN pain 10/06/24 10/29/24 History cyanocobalamin (vitamin B-12) 1,000 mcg PO DAILY 10/06/24 10/06/24 History 1,000 mcg capsule galcanezumab-gnlm 120 mg/mL 120 mg subcut MONTHLY 10/06/24 10/29/24 History subcutaneous pen injector (Emgality Pen) amitriptyline 50 mg tablet 50 mg PO HS 10/12/24 10/29/24 History lisinopril 5 mg tablet 5 mg PO DAILY 10/12/24 10/29/24 History Allergies Allergy/AdvReac Type Severity Reaction Status Date / Time Penicillins Allergy Intermediate Fainting Verified 10/29/24 12:39 morphine Allergy Unknown SYNCOPE Verified 10/29/24 12:39 Vital Signs Vital Signs - 24 hr 10/29/24 07:20 10/29/24 10:49 10/29/24 11:05 Temperature 97.4 F L 97.7 F Pulse Rate 73 90 76 Respiratory Rate 16 13 14 Blood Pressure 130/75 144/74 H 122/67 Pulse Oximetry 100 98 100 Oxygen Delivery Room Air Simple Face Mask Room Air Oxygen Flow Rate 8 10/29/24 11:20 10/29/24 11:35 10/29/24 11:50 Temperature Pulse Rate 79 82 80 Respiratory Rate 16 12 12 Blood Pressure 138/70 124/62 125/61 Pulse Oximetry 100 93 93 Oxygen Delivery Simple Face Mask Room Air Room Air Oxygen Flow Rate 10 10/29/24 12:05 10/29/24 12:20 Temperature 97.8 F Pulse Rate 79 81 Respiratory Rate 14 14 Blood Pressure 117/78 122/66 Pulse Oximetry 98 99 Oxygen Delivery Nasal Cannula Nasal Cannula Oxygen Flow Rate 3 3 Exam Narrative: General: well appearing, appears stated age. HEENT: normocephalic, atraumatic. Mucous membranes moist. EOMI, PERRLA, bilateral sclera anicteric, no conjunctival injection. Neck supple without JVD, lymphadenopathy, or bruit. Respiratory: clear to ascultation bilaterally. No rales/rhonic/wheezes. Cardiovascular: Regular rate and rhythm, normal S1-S2 upon ascultation. No murmurs, rubs, or clicks. PMI is nondisplaced, capillary refill less than 3 second. Abdomen: Soft, round, no pulsatile masses, nondistended and nontender. No rebound, no guarding. No CVA tenderness, no hepatosplenomegaly. Bowel sounds present to all four quadrants. No high pitch or tinkling sounds, resonant to percussion. Extremities: No cyanosis, clubbing, or edema present. Pulses are palpable 2/2. Left lower extremity with some swelling surgical dressing clean dry intact Neuro: Alert and orientated x 4. PERRLA. Cranial nerves 2-12 intact without focal deficit. Skin: Warm, dry, and intact, without rash, erythema, or lesion. Psych: pleasant, cooperative, normal speech, normal affect, no hallucinations, no dysarthia Quality VTE Prophylaxis VTE prophylaxis: mechanical ordered and pharmacologic ordered Hospitalist [facility] Advance Care Plan I have confirmed that the patient's Advanced Care Plan is present, code status is documented, or surrogate decision maker is listed in patient medical record.: Yes Medication Reconciliation I have utilized all available resources to obtain, update and review the patients current medications (includes all prescriptions, OTC, herbals, cannabis, and nutritional supplements).: Yes
[2024-10-29] MEDS: oxyCODONE HCL (*CRX) 5 MG TAB IR PO ×3 (14:39→21:14)
[2024-10-29] MEDS: ACETAMINOPHEN 325 MG TABLET 650 MG PO ×3 (14:39→21:14)
--- NOTE | 2024-10-29 15:48 | ADMGEN ---
This patient, Noemy Sanz, was admitted to 3 [facility] Surg Room 312-01. Patient/family oriented to hospital policies and general routines including ID bracelet, bed and alarms, visiting hours, pain management, procedures, bathroom and other care routines, personal items, smoking policy, room service/diet, and visiting hours. Information on how to activate the Rapid Response Team has been discussed. Patient/Family are encouraged to report perceived risks to care and to ask questions if they do not understand what they are told or what they should do.
[2024-10-29] MEDS: SENNA/DOCUSATE SODIUM TABLET 2 TAB PO (16:34)
[2024-10-29] MEDS: VANCOMYCIN 1,000 MG/NS 250 ML 1,000 MG/250 ML BAG 250 MG IVPB (17:16)
[2024-10-29] MEDS: rOPINIRole HCL 1 MG TABLET 5 MG PO (21:13)
[2024-10-29] MEDS: FAMOTIDINE 20 MG TABLET PO (21:14)
[2024-10-30] VITALS: BP 125/77; PULSE 72; RESP 20; TEMP 37.2; O2SAT 91
[2024-10-30] MEDS: oxyCODONE HCL (*CRX) 5 MG TAB IR PO ×3 (01:57→09:04)
[2024-10-30] MEDS: ACETAMINOPHEN 325 MG TABLET 650 MG PO ×3 (01:57→08:11)
[2024-10-30 04:00] VITALS: BP 132/70; PULSE 69; RESP 20; TEMP 35.9; O2SAT 95
[2024-10-30] MEDS: LEVOTHYROXINE SODIUM 125 MCG TABLET PO (05:52)
[2024-10-30] MEDS: VANCOMYCIN 1,000 MG/NS 250 ML 1,000 MG/250 ML BAG 250 MG IVPB (05:52)
[2024-10-30 06:05] LABS: Basophils Percent Auto 0.3 % (0.2-1.2); Hematocrit 38.2 % (37.0-47.0); Hemoglobin 11.3 g/dL (12.0-15.0); Immature Granulocyte Absolute 0.08 K/mm3 (0.00-0.031); Immature Granulocyte Percent A 0.7 % (0-0.5); Lymphocytes Absolute Auto 1.23 K/mm3 (0.9-3.2); Lymphocytes Percent Auto 10.4 % (18.3-44.2); Mean Corpuscular HGB Conc 29.6 g/dl (32-36); Mean Corpuscular Hemoglobin 28.1 pg (26-34); Mean Platelet Volume 9.5 fl (7.4-10.4); Monocytes Absolute Auto 0.9 K/mm3 (0.1-0.6); Monocytes Percent Auto 7.8 % (2.6-8.5); Neutrophils Absolute Auto 9.6 K/mm3 (1.3-6.7); Neutrophils Percent Auto 80.8 % (45.5-73.1); Platelet Count Result 255 k/mm3 (150-375); Red Blood Count 4.02 M/mm3 (4.2-5.4); Red Cell Distribution Width 13.9 % (11.5-14.5); White Blood Count 11.8 K/mm3 (4.5-10.0)
[2024-10-30 06:17] LABS: Anion Gap 7 mmol/L (4-12); Blood Urea Nitrogen 18 mg/dL (7-17); Carbon Dioxide 27 mmol/L (22-30); Chloride 102 mmol/L (98-107); Estimated CRCL calculation 58 ml/min; Estimated Glomerular Filt Rate > 60; Glucose 103 mg/dL (65-110); Potassium 4.1 mmol/L (3.4-5.0); Sodium 136 mmol/L (137-145)
--- NOTE | 2024-10-30 07:37 | P.CONIM_ITS ---
Assessment and Plan Assessment and plan (1) Primary osteoarthritis of left knee: Code(s): M17.12 - Unilateral primary osteoarthritis, left knee Status: Acute Assessment and Plan: Status postop left knee total arthroplasty by Orthopedics on 10/29/2024 Eliquis Postop antibiotics Pain management per Ortho Activity as tolerated A.m. labs (2) Hypercholesteremia: Code(s): E78.00 - Pure hypercholesterolemia, unspecified Status: Acute Assessment and Plan: Continue Crestor (3) Hypothyroidism: Code(s): E03.9 - Hypothyroidism, unspecified Status: Acute Assessment and Plan: Continue levothyroxine (4) Hypertension: Code(s): I10 - Essential (primary) hypertension Status: Acute Assessment and Plan: Orthopedics holding lisinopril Continue Norvasc HPI Date of Consult Consult date: 10/30/24 Requesting Physician: Jemal Wilson MD Primary Care Provider: Keyona Black, GLUE DRIER OPERATOR Consult Narrative Narrative: Noemy Sanz is a 69 year old female with a past medical history of hypothyroidism, GERD, hyperlipidemia and osteoarthritis of left knee presents the hospital for planned total knee arthroplasty. Pt was seen by orthopedics early this morning and cleared for discharge once IV antibiotics were finished. Pt was discharged and off the floor before I was able to make my assessment. Review of Systems 2 Review of Systems: 12 systems were reviewed and are negativ e except for as per HPI. PMFSH Past Medical History Medical History (Updated 10/29/24 @ 14:23 by Keyona Zee, GLUE DRIER OPERATOR) Hypothyroidism GERD (gastroesophageal reflux disease) Hypercholesteremia Surgical History Surgical History (Updated 10/30/24 @ 09:54 by RADHA Dunbar) History of hysterectomy Family History Family History (Updated 07/20/24 @ 10:02 by Leigh Atkinson CMA) Father Cerebrovascular accident Social History Social History (Updated 07/20/24 @ 10:02 by Leigh Atkinson CMA) Smoking status: Never smoker Alcohol intake: never Substance use: never Do You Feel Safe in your Home?: Yes Lack of Transportation: No Lack of Food: Never True Current Housing: I Have Housing Concerned About Future Housing: No Difficulty Paying Gas/Electric Bills: No Difficulty Paying for Meds: No Currently Unemployed: No Education: High School Diploma/GED Difficulty w/ Childcare or Family Care: No Living arrangements: with family Additional living arrangements comments: HUSB Spiritual care concerns: No Meds Home Medications and Allergies Home Medications ?Medication ?Instructions ?Recorded ?Confirmed ?Type cholecalciferol (vitamin D3) 25 25 mcg PO DAILY 07/13/19 10/29/24 History mcg (1,000 unit) capsule (Vitamin D3) levothyroxine 125 mcg tablet 125 mcg PO DAILY 07/13/19 10/29/24 History (Synthroid) rosuvastatin 10 mg tablet 10 mg PO DAILY 07/13/19 10/29/24 History amlodipine 5 mg tablet (Norvasc) 5 mg PO DAILY 07/20/24 10/29/24 History fludrocortisone 0.1 mg tablet 0.05 mg PO DAILY 07/20/24 10/29/24 History polyethylene glycol 3350 17 17 g PO DAILY PRN constipation 07/20/24 10/06/24 History gram/dose oral powder (Miralax) ropinirole 1 mg tablet 5 mg PO QPM 07/20/24 10/29/24 History cyanocobalamin (vitamin B-12) 1,000 mcg PO DAILY 10/06/24 10/06/24 History 1,000 mcg capsule galcanezumab-gnlm 120 mg/mL 120 mg subcut MONTHLY 10/06/24 10/29/24 History subcutaneous pen injector (Emgality Pen) amitriptyline 50 mg tablet 50 mg PO HS 10/12/24 10/29/24 History lisinopril 5 mg tablet 5 mg PO DAILY 10/12/24 10/29/24 History acetaminophen 325 mg tablet 650 mg (2 x 325 mg) PO Q4H #90 tabs 10/30/24 Rx apixaban 2.5 mg tablet (Eliquis) 2.5 mg PO Q12HR #28 tabs 10/30/24 Rx cefdinir 300 mg capsule 300 mg PO Q12HR #14 caps 10/30/24 Rx celecoxib 100 mg capsule (Celebrex) 100 mg PO DAILY@0800 #60 caps 10/30/24 Rx famotidine 20 mg tablet 20 mg PO Q12HR #60 tabs 10/30/24 Rx oxycodone 5 mg tablet 5 mg PO Q4H #40 tabs 10/30/24 Rx sennosides 8.6 mg-docusate sodium 2 tab PO BID #60 tabs 10/30/24 Rx 50 mg tablet (Senokot-S) Allergies Allergy/AdvReac Type Severity Reaction Status Date / Time Penicillins Allergy Intermediate Fainting Verified 10/29/24 12:39 morphine Allergy Unknown SYNCOPE Verified 10/29/24 12:39 Vital Signs Vital Signs - 24 hr 10/29/24 10:49 10/29/24 11:05 10/29/24 11:20 Temperature 97.7 F Pulse Rate 90 76 79 Respiratory Rate 13 14 16 Blood Pressure 144/74 H 122/67 138/70 Pulse Oximetry 98 100 100 Oxygen Delivery Simple Face Mask Room Air Simple Face Mask Oxygen Flow Rate 8 10 10/29/24 11:35 10/29/24 11:50 10/29/24 12:05 Temperature Pulse Rate 82 80 79 Respiratory Rate 12 12 14 Blood Pressure 124/62 125/61 117/78 Pulse Oximetry 93 93 98 Oxygen Delivery Room Air Room Air Nasal Cannula Oxygen Flow Rate 3 10/29/24 12:20 10/29/24 14:27 10/29/24 14:30 Temperature 97.8 F 96.8 F L Pulse Rate 81 95 Respiratory Rate 14 16 Blood Pressure 122/66 126/81 Pulse Oximetry 99 97 Oxygen Delivery Nasal Cannula Room Air Oxygen Flow Rate 3 10/29/24 15:15 10/29/24 15:27 10/29/24 15:45 Temperature 96.9 F L 97 F L Pulse Rate 89 87 84 Respiratory Rate 18 20 16 Blood Pressure 145/80 H 117/81 Pulse Oximetry 97 97 95 Oxygen Delivery Room Air Oxygen Flow Rate 10/29/24 15:55 10/29/24 16:45 10/29/24 21:23 Temperature 97.3 F L 97.1 F L Pulse Rate 85 92 Respiratory Rate 16 16 Blood Pressure 121/70 116/73 Pulse Oximetry 98 97 Oxygen Delivery Room Air Oxygen Flow Rate 10/29/24 21:52 10/30/24 00:00 10/30/24 04:00 Temperature 98.9 F 96.6 F L Pulse Rate 72 69 Respiratory Rate 20 20 Blood Pressure 125/77 132/70 Pulse Oximetry 96 91 95 Oxygen Delivery Room Air Oxygen Flow Rate Exam 2 Narrative: Pt discharged and off floor before assessment could be made. Results Labs 10/30/24 05:38 10/30/24 05:38 Labs: Short CBC 10/30/24 Range/Units 05:38 WBC 11.8 H (4.5-10.0) K/mm3 Hgb 11.3 L (12.0-15.0) g/dL Hct 38.2 (37.0-47.0) % Plt Count 255 (150-375) k/mm3 BMP 10/30/24 05:38 Sodium 136 L Potassium 4.1 Chloride 102 Carbon Dioxide 27 BUN 18 H Creatinine 0.89 Glucose 103 Calcium 9.0 Quality VTE Prophylaxis VTE prophylaxis: mechanical ordered and pharmacologic ordered
[2024-10-30] MEDS: ceFAZolin 2 GM/D5W 50 ML 2 GM/50 ML BAG IVPB (07:50)
[2024-10-30] MEDS: CELECOXIB 100 MG CAPSULE PO (07:51)
[2024-10-30] MEDS: polyethylene glycoL 3350 17 GM POWD.PACK PO (08:10)
[2024-10-30] MEDS: CYANOCOBALAMIN 1,000 MCG TABLET 1000 MCG PO (08:11)
[2024-10-30] MEDS: SENNA/DOCUSATE SODIUM TABLET 2 TAB PO (08:11)
[2024-10-30] MEDS: ROSUVASTATIN 10 MG TABLET PO (08:11)
[2024-10-30] MEDS: FAMOTIDINE 20 MG TABLET PO (08:11)
[2024-10-30] MEDS: FLUDROCORTISONE ACETATE 0.1 MG TABLET 0.05 MG PO (08:11)
[2024-10-30] MEDS: CEFDINIR 300 MG CAPSULE PO (08:11)
[2024-10-30] MEDS: amLODIPine BESYLATE 5 MG TABLET PO (08:12)
[2024-10-30] MEDS: APIXABAN 2.5 MG TABLET PO (08:12)
[2024-10-30] MEDS: CHOLECALCIFEROL (VITAMIN D3) 25 MCG (1,000 UNITS) TABLET PO (08:12)
--- NOTE | 2024-10-30 09:50 | P.PNOP_ITS ---
Subjective Subjective Date/Time Seen: 10/30/24 09:50 Interval history: Postop day 1 patient is alert. She is afebrile vital signs are stable. Pain is well controlled. She has been up several times overnight to the restroom and urinating well. She saw therapy yesterday and walked with them and felt that she was doing good. This morning her dressing is dry and intact. Neurovascularly she is intact. She is able do a straight leg raise in the bed this morning. Her morning labs are noted. Overall patient is very stable in doing well. Will plan have her work with therapy this morning and if she is continuing to do well she is discharged home late this morning once IV antibiotics have been completed. Objective Data Vital Signs Vital Signs: Vital Signs - 24 hr 10/29/24 10:49 10/29/24 11:05 10/29/24 11:20 Temperature 97.7 F Pulse Rate 90 76 79 Respiratory Rate 13 14 16 Blood Pressure 144/74 H 122/67 138/70 Pulse Oximetry 98 100 100 Oxygen Delivery Simple Face Mask Room Air Simple Face Mask Oxygen Flow Rate 8 10 10/29/24 11:35 10/29/24 11:50 10/29/24 12:05 Temperature Pulse Rate 82 80 79 Respiratory Rate 12 12 14 Blood Pressure 124/62 125/61 117/78 Pulse Oximetry 93 93 98 Oxygen Delivery Room Air Room Air Nasal Cannula Oxygen Flow Rate 3 10/29/24 12:20 10/29/24 14:27 10/29/24 14:30 Temperature 97.8 F 96.8 F L Pulse Rate 81 95 Respiratory Rate 14 16 Blood Pressure 122/66 126/81 Pulse Oximetry 99 97 Oxygen Delivery Nasal Cannula Room Air Oxygen Flow Rate 3 10/29/24 15:15 10/29/24 15:27 10/29/24 15:45 Temperature 96.9 F L 97 F L Pulse Rate 89 87 84 Respiratory Rate 18 20 16 Blood Pressure 145/80 H 117/81 Pulse Oximetry 97 97 95 Oxygen Delivery Room Air Oxygen Flow Rate 10/29/24 15:55 10/29/24 16:45 10/29/24 21:23 Temperature 97.3 F L 97.1 F L Pulse Rate 85 92 Respiratory Rate 16 16 Blood Pressure 121/70 116/73 Pulse Oximetry 98 97 Oxygen Delivery Room Air Oxygen Flow Rate 10/29/24 21:52 10/30/24 00:00 10/30/24 04:00 Temperature 98.9 F 96.6 F L Pulse Rate 72 69 Respiratory Rate 20 20 Blood Pressure 125/77 132/70 Pulse Oximetry 96 91 95 Oxygen Delivery Room Air Oxygen Flow Rate Intake/Output Intake/Output: Intake & Output 10/27/24 10/28/24 10/29/24 10/30/24 23:59 23:59 23:59 23:59 Intake Total 600 150 Balance 600 150 Meds/Results Medications: Active Medications Generic Name Dose Route Start Last Admin Trade Name Freq PRN Reason Stop Dose Admin Acetaminophen 650 mg 10/29/24 13:00 10/30/24 08:11 Acetaminophen 325 Mg Tablet PO 650 mg Q4H BILLY Administration Amlodipine Besylate 5 mg 10/30/24 09:00 10/30/24 08:12 Amlodipine Besylate 5 Mg Tablet PO 5 mg DAILY BILLY Administration Apixaban 2.5 mg 10/30/24 09:00 10/30/24 08:12 Apixaban 2.5 Mg Tablet PO 11/10/24 21:01 2.5 mg Q12HR BILLY Administration Cefdinir 300 mg 10/30/24 09:00 10/30/24 08:11 Cefdinir 300 Mg Capsule PO 300 mg Q12HR BILLY Administration Celecoxib 100 mg 10/30/24 08:00 10/30/24 07:51 Celecoxib 100 Mg Capsule PO 100 mg DAILY@0800 BILLY Administration Cyanocobalamin 1,000 mcg 10/30/24 09:00 10/30/24 08:11 Cyanocobalamin 1,000 Mcg Tablet PO 1,000 mcg DAILY BILLY Administration Diphenhydramine HCl 25 mg 10/29/24 12:34 Diphenhydramine Hcl Inj 50 Mg/Ml Vial IV PUSH Q6H PRN Itching Famotidine 20 mg 10/29/24 21:00 10/30/24 08:11 Famotidine 20 Mg Tablet PO 20 mg Q12HR BILLY Administration Fludrocortisone Acetate 0.05 mg 10/30/24 09:00 10/30/24 08:11 Fludrocortisone Acetate 0.1 Mg Tablet PO 0.05 mg DAILY BILLY Administration Hydromorphone HCl 0.5 mg 10/29/24 12:34 Hydromorphone Hcl Inj (*Crx) 1 Mg/Ml Syr IV PUSH Q2H PRN Breakthrough Pain Rated 4-6 or NPO Levothyroxine Sodium 125 mcg 10/30/24 06:30 10/30/24 05:52 Levothyroxine Sodium 125 Mcg Tablet PO 125 mcg DAILY@0630 BILLY Administration Miscellaneous Information 0 each 10/29/24 00:01 Emgality Pen_ Is Non-Formulary. Can Patient Use Own Supply If Dose Comes Due During Hospit XX 11/28/24 00:00 CLARIFY BILLY Naloxone HCl 0.1 mg 10/29/24 12:34 Naloxone Hcl 0.4 Mg/Ml Vial IV PUSH Q2M PRN Opiate Reversal Non-Formulary Medication 120 mg 11/28/24 09:00 Galcanezumab-Gnlm [Emgality Pen] SUB-Q 12/28/24 08:59 MONTHLY [facility] Ondansetron HCl 4 mg 10/29/24 12:34 Ondansetron Inj 4 Mg/2 Ml Vial IV PUSH Q4H PRN Nausea And Vomiting Oxycodone HCl 5 mg 10/29/24 14:00 10/30/24 09:04 Oxycodone Hcl (*Crx) 5 Mg Tab Ir PO 5 mg Q4H BILLY Administration Oxycodone HCl 5 mg 10/29/24 12:34 Oxycodone Hcl (*Crx) 5 Mg Tab Ir PO Q4H PRN Pain Rated 7-10 Polyethylene Glycol 17 gm 10/30/24 09:00 10/30/24 08:10 Polyethylene Glycol 3350 17 Gm Powd.Pack PO 17 gm QAM BILLY Administration Ropinirole HCl 5 mg 10/29/24 21:00 10/29/24 21:13 Ropinirole Hcl 1 Mg Tablet PO 5 mg HS BILLY Administration Rosuvastatin Calcium 10 mg 10/30/24 09:00 10/30/24 08:11 Rosuvastatin 10 Mg Tablet PO 10 mg DAILY BILLY Administration Senna/Docusate Sodium 2 tab 10/29/24 17:00 10/30/24 08:11 Senna/Docusate Sodium Tablet PO 2 tab BID BILLY Administration Vitamin D 25 mcg 10/30/24 09:00 10/30/24 08:12 Cholecalciferol (Vitamin D3) 25 Mcg (1,000 Units) Tablet PO 25 mcg DAILY BILLY Administration Radiology Results: ITS Impressions Knee X-Ray 10/29/24 11:50 IMPRESSION: No acute osseous abnormality left knee. Total knee arthroplasty. Labs Labs: Laboratory Results - last 24 hr 10/30/24 05:38 WBC 11.8 H RBC 4.02 L Hgb 11.3 L Hct 38.2 MCV 95.0 MCH 28.1 MCHC 29.6 L RDW 13.9 Plt Count 255 MPV 9.5 Immature Gran % (Auto) 0.7 H Neut % (Auto) 80.8 H Lymph % (Auto) 10.4 L Franklin % (Auto) 7.8 Eos % (Auto) 0.0 Baso % (Auto) 0.3 Lymph # (Auto) 1.23 Franklin # (Auto) 0.9 H Eos # (Auto) 0.0 Baso # (Auto) 0.0 Abs Immat Gran (auto) 0.08 H Absolute Neuts (auto) 9.6 H Absolute Nucleated RBC 0.000 Nucleated RBC % 0.0 Sodium 136 L Potassium 4.1 Chloride 102 Carbon Dioxide 27 Anion Gap 7 BUN 18 H Creatinine 0.89 Estim Creat Clear Calc 58 Estimated GFR > 60 Glucose 103 Calcium 9.0
== END 2024-10-30 11:05 | disposition home or self-care (01) ==
LOC: ANHSURGERY 12:33 → ANH3MEDSUR 12:42
PROVIDERS: Physician Assistant Surgical; PCP Registered Nurse; Visit Provider Orthopaedic Surgery
PROC: (CPT 27447; principal; 2024-10-29 07:30)
DX: M17.12 Unilateral primary osteoarthritis, left knee (principal); E78.00 Pure hypercholesterolemia, unspecified; E03.9 Hypothyroidism, unspecified; I10 Essential (primary) hypertension; E66.9 Obesity, unspecified; Z68.31 Body mass index [BMI] 31.0-31.9, adult
CPT/HCPCS: 27447; 36415; 73560; 80048; 85025; 86850; 86900; 86901; 97110; 97116; 97161; 97165; 97530; 97535; A9270; C1713; C1776; J0171; J0690; J1100; J1885; J2003; J2250; J2405; J2704; J2795; J3010; J3370; J7120

== ENCOUNTER 2025-01-28 13:30 | Outpatient (RCR) | payer MEDICARE, OTHER, SELFPAY ==
--- NOTE | 2024-10-30 08:09 | WPDANESPN ---
Anes - Prog Note Post-Op Date/Time: 10/30/24 08:09 Cardiovascular status: normal Respiratory status: normal Airway patency: baseline Mental status: baseline Pain Score (VAS): 3 Patient Feedback: Patient satisfied with anesthetic care.
--- NOTE | 2024-11-02 16:08 | PTOPEVAL1 ---
Assessment and note entered by Hattie Becerra, PT Evaluation Information Assessment Status Evaluation Diagnosis Unilat primary arthritis L knee M17.12, Presence of L artificial knee Z96.6 ICD-10 Condition Codes (PT) Pain in left knee M25.562,Difficulty Walking R26.2 ,Abnormalities of gait and mobility R26.9 Subjective Information Surgery left total knee replacement 10/29/2024 Facial surgery 12/11/24 Oxycodone for home 5mg every 4 hours Pt reports is not doing well getting around the house. Pt assists out of bed and uses a bedside commode Uses a handle on the side of the car to get in and out. Pt states is not walking with the walker much yet. First day blood pressure was really low Reported Pain Level Pain Score 6: Self Report Assessment PT Clinical Summary Pt presents s/p TKR LLE 10/29/2024. She reports pain ranging from 5-7/10 on the pain scale. Pt demonstrates decreased ROM from 12-78 passively and actively, she demonstrates swelling LLE within acceptable limits, gait abnormalities with step- thru pattern as appropriate for this phase of healing. She was encouraged to perform her stretching exercises every waking hour as well as to walk short distances every waking hour as well to improve pain, ROM, and swelling. Pt appears motivated to participate in therapy. Will benefit from skilled services to address deficits and reach overall functional goals. Plan of Care Interventions Electrical Stimulation,Gait Training,Intermittent Compression Pump,Manual Therapy,Neuro Re-education ,Patient/Caregiver Education,Therapeutic Activities,Therapeutic Exercise,Self-Care/Home Management,Other Other Interventions taping PT Services Indicated Yes Treatment Frequency and 2x weekly x 6 weeks Duration These treatments will address the objective and functional deficits as defined above. The patient will be advanced safely and appropriately in order for the patient to progress towards his/her prior level of function. Additional exercises will be introduced and as well as a comprehensive home exercise program upon discharge, if needed, ?to ensure carryover of functional gains achieved in the clinic. This treatment plan has been reviewed and agreement upon by the patient.
--- NOTE | 2024-11-02 16:09 | OPREHPOC ---
Outpatient Therapy Plan of Care This is a Multidisciplinary Plan of Care that may contain components documented by all disciplines (PT, OT, and ST.) PT Problem 1 PT Problem #1 Knowledge Deficit PT Goal 1 Goal / Goal Update Pt will be independent in HEP Pt will verbalize understanding of diagnosis and prognosis Target Visit 10 PT Problem 2 PT Problem #2 Pain PT Goal 1 Goal / Goal Update Pt will report lowest pain rating at 0/10 to show improvement in overall discomfort Target Visit 10 PT Goal 2 Goal / Goal Update Pt will report greatest pain level at 3/10 or less to improve ADLs and activities Target Visit 20 PT Problem 3 PT Problem #3 Impaired Gait PT Goal 1 Goal / Goal Update Pt will demonstrate reciprocal pattern with improved weight bearing through LLE for more functional movement pattern Target Visit 10 PT Goal 2 Goal / Goal Update Pt will demonstrate ability to ambulate with or without AD 160 ft in 2 min walk test for more functional gait pattern Target Visit 20
--- NOTE | 2025-01-28 15:35 | PTOPPROG ---
Assessment and note entered by Hattie Becerra, PT Evaluation Information Assessment Status Progress Diagnosis Unilat primary arthritis L knee M17.12, Presence of L artificial knee Z96.6 ICD-10 Condition Codes (PT) Pain in left knee M25.562,Difficulty Walking R26.2 ,Abnormalities of gait and mobility R26.9 Subjective Information Was very busy yesterday and didn't get her stretches in as much. But other days has been able to do them every hour. At home has been using cane at home about half the day. Using 2w-w for long distances The massaging the knee she does 3x daily with cocoa butter and this feels like it has helped a lot. Has not been down stairs yet, is scared to got down to the basement. Has railing descending on the left. Perceived Improvement: 80% Assessment PT Clinical Summary Pt has attended therapy consistently for her L TKR performed 10/29/2024. Through therapy she has been making slow progress, but overall steady progress . She had a few set-backs with flare ups in her pain, or less than 100% compliance with her home exercises. Today she reports she is doing much better at performing her exercises hourly with occasional days she is busy with errands or other doctors' appts. Currently she is progressing in her pain management ranging from 3-5/10, and is reducing her pain medication usage. she is using her cane about half the day for walking and her 2w -w for long distances. She shows passive ROM 4-118 today in the left knee, and her strength has improved. Though she did have pain with resisted quads testing limiting true measurement. Pt reports today feeling 80% improved overall, but appears to require one on one instruction in appropriate steps to take while progressing her function and reducing/managing her pain. Pt will benefit from continued therapy to progress in the last phase of strengthening and function to meet her goals of independent function. Plan of Care Interventions Electrical Stimulation,Gait Training,Intermittent Compression Pump,Manual Therapy,Neuro Re-education ,Patient/Caregiver Education,Therapeutic Activities,Therapeutic Exercise,Self-Care/Home Management,Other Other Interventions taping PT Services Indicated Yes Treatment Frequency and 2x weekly x 10 visits Duration These treatments will address the objective and functional deficits as defined above. The patient will be advanced safely and appropriately in order for the patient to progress towards his/her prior level of function. Additional exercises will be introduced and as well as a comprehensive home exercise program upon discharge, if needed, ?to ensure carryover of functional gains achieved in the clinic. This treatment plan has been reviewed and agreement upon by the patient.
--- NOTE | 2025-01-28 15:35 | OPREHPOC ---
Outpatient Therapy Plan of Care This is a Multidisciplinary Plan of Care that may contain components documented by all disciplines (PT, OT, and ST.) PT Problem 1 PT Problem #1 Knowledge Deficit PT Goal 1 Goal / Goal Update Pt will be independent in HEP Pt will verbalize understanding of diagnosis and prognosis Target Visit 10 Progress Met PT Problem 2 PT Problem #2 Pain PT Goal 1 Goal / Goal Update Pt will report lowest pain rating at 0/10 to show improvement in overall discomfort updated target session to visit 30 - progressed to 3/10 Target Visit 30 Progress Partially Met PT Goal 2 Goal / Goal Update Pt will report greatest pain level at 3/10 or less to improve ADLs and activities - progressed to 5/ 10 at worst updated target visit Target Visit 40 Progress Not Met PT Problem 3 PT Problem #3 Impaired Gait PT Goal 1 Goal / Goal Update Pt will demonstrate reciprocal pattern with improved weight bearing through LLE for more functional movement pattern Target Visit 10 Progress Met PT Goal 2 Goal / Goal Update Pt will demonstrate ability to ambulate with or without AD 160 ft in 2 min walk test for more functional gait pattern Target Visit 20 Progress Met PT Problem 4 PT Problem #4 Impaired Gait PT Goal 1 Goal / Goal Update Pt will demonstrate appropriate use of large base quad cane with improved weight bearing in operative leg. - progressed beyond Target Visit 30 Progress Met PT Goal 2 Goal / Goal Update Pt will demonstrate appropriate ambulation without AD and minimal to no gait abnormalities Target Visit 40 PT Problem 5 PT Problem #5 Impaired Strength PT Goal 1 Goal / Goal Update Pt will demonstrate 4+/5 strength in left quads for functional use Target Visit 40
== END 2025-02-02 23:59 | disposition home or self-care (01) ==
LOC: ANHHIPT 13:30
PROVIDERS: PCP Registered Nurse; Visit Provider Orthopaedic Surgery
DX: Z47.1 Aftercare following joint replacement surgery (principal); M17.12 Unilateral primary osteoarthritis, left knee; Z96.652 Presence of left artificial knee joint
CPT/HCPCS: 97014; 97016; 97110; 97116; 97140; 97161; 97530; 97750; G0283

== ENCOUNTER 2025-03-22 10:45 | Outpatient (RCR) | payer MEDICARE, OTHER, SELFPAY ==
--- NOTE | 2025-02-23 17:01 | PTOPPROG ---
Assessment and note entered by Hattie Becerra, PT Evaluation Information Assessment Status Progress Diagnosis Unilat primary arthritis L knee M17.12, Presence of L artificial knee Z96.6 ICD-10 Condition Codes (PT) Pain in left knee M25.562,Difficulty Walking R26.2 ,Abnormalities of gait and mobility R26.9 Subjective Information Pt reports went whole weekend without the cane and the knee hurt more. Went back to the cane today. Hasn't had to use the walker accept to the baseball game. Reports went down some steps to her upstairs and came down hard on her LLE and felt some increased pain. Has been able to go down to her basement multiple times now. Reports pain is up to a 6/10 Pain medication was doing pretty good was down to one and half pills before last week but is back up to 2 pills daily Right knee is more bothersome recently. Pt reports doctor only told her to do her stretches but didn't tell her how often so has been doing them 4x a day both the bending and straightening Assessment PT Clinical Summary Pt has been attending therapy consistently post total knee replacement approx 4 months ago. She has been making slow progress and now is showing more appropriate range of motion. She reports she has been able to wean herself down from prescription pain meds a day to 1.5 then had a small flare up and went back up to 2. She reports increased pain today as she didn't use any AD for ambulation all weekend. Reminded patient of working off of AD slowly to prevent increased pain and soreness. Progressed her program today with additional strengthening and stability training related to gait to improve her overall function and meet her mobility goals. Plan of Care Interventions Electrical Stimulation,Gait Training,Intermittent Compression Pump,Manual Therapy,Neuro Re-education ,Patient/Caregiver Education,Therapeutic Activities,Therapeutic Exercise,Self-Care/Home Management,Other Other Interventions taping PT Services Indicated Yes Treatment Frequency and Cont remainder of POC 2x weekly Duration These treatments will address the objective and functional deficits as defined above. The patient will be advanced safely and appropriately in order for the patient to progress towards his/her prior level of function. Additional exercises will be introduced and as well as a comprehensive home exercise program upon discharge, if needed, ?to ensure carryover of functional gains achieved in the clinic. This treatment plan has been reviewed and agreement upon by the patient.
--- NOTE | 2025-03-22 14:39 | PTOPDC ---
Assessment and note entered by Hattie Becerra, PT Evaluation Information Assessment Status Discharge Diagnosis Unilat primary arthritis L knee M17.12, Presence of L artificial knee Z96.6 ICD-10 Condition Codes (PT) Pain in left knee M25.562,Difficulty Walking R26.2 ,Abnormalities of gait and mobility R26.9 Subjective Information Pt reports saw Dr. Falcon, he gave her a brace for her LEFT knee to wear but this wasn't helping with her left knee giving out. States yesterday had sharp pains in her left knee as well but was the first time had this happen. States both knees are going out when walking Reports Dr. Falcon ordered RIGHT knee MRI and saw two torn ligaments but hasn't made any plans yet for this. Pain medication is decreased to tramadol and this is helping. Two of these a day. Is still walking with her cane 40% and walker 60% for long distances because is scared of her knee going out. Reported Pain Level Pain Score 4: Self Report Assessment PT Clinical Summary Pt has attended therapy consistently post left total knee replacement 10/29/2024. She had significant difficulty in the beginning of her therapy POC due to pain and inconsistency with her required exercises. She began to have progress with more aggressive therapy sessions, and was more consistent with her ROM progression. However through her POC, she was noted at times to have multiple flare ups throughout with one time being progressing from her walker to a cane 100% in one day versus working up to 100% cane usage. She had difficulty weaning from her pain medication though recently has been able to stop her oxycodone and is only taking Tramadol 2x daily. She had progressed to walking with a cane, then started to c/o left knee giving out and has since moved back to walker 60% of the time. She also reports she has been to see another ortho surgeon who gave her a brace for her left knee, and has been addressing her right knee. She reports the brace helps the left knee discomfort though both are still giving out with her walking. Her passive ROM today in sitting shows 0-120 degrees, but her strength testing was limited due to pain along the top of the patella. Her gait scores have also significantly reduced. Pt is thus being discharged due to max therapy benefit being met at this time and advised to discuss with MD further options. Plan of Care PT Services Indicated No
== END 2025-03-22 15:02 | disposition home or self-care (01) ==
LOC: ANHHIPT 10:45
PROVIDERS: PCP Registered Nurse; Visit Provider Orthopaedic Surgery
DX: Z47.1 Aftercare following joint replacement surgery (principal); M25.562 Pain in left knee; M17.12 Unilateral primary osteoarthritis, left knee; Z96.652 Presence of left artificial knee joint
CPT/HCPCS: 97014; 97110; 97116; 97530; 97750; G0283